=== PATIENT | female | born 1990 | race African-American/Black ===

== ENCOUNTER 2017-06-02 11:44 | Inpatient (IN) | payer OTHER ==
[2017-06-02 11:50] VITALS: BMI 60.2
--- NOTE | 2017-06-02 12:05 | PDOC ---
History of Present Illness - General Chief Complaint: Wound Infection Stated Complaint: SEPSIS Time Seen by Provider: 06/02/17 12:03 History Source: Patient Exam Limitations: No Limitations - History of Present Illness Initial Comments: 06/02/17 12:39 26 yo female with uncontrolled IDDM, chronic non-healing right heel ulcer, prior MRSA (treated with whole-body scrub), and HTN who presents c/o 8/10 foot and leg pain, fever, abdominal pain, and vomiting. Her symptoms started two days ago with increased pain, swelling, and redness around the nonhealing right foot ulcer spreading up the right calf for which she took Tylenol yesterday with no relief. This morning her entire right leg was achy up to the hip, she had an onset of fever and chills, and she had an onset of vomiting and mid- abdominal pain. She has vomited too many times to count today. She did not take her morning dose of insulin d/t the vomiting, and has been measuring her CBG to be >400 at home in the past two days. She has had DKA in the past. She is supposed to be going to wound care appointment weekly but has not been in one month because she moved homes. She additionally notes recent shakiness, but denies chest pain, shortness of breath, diarrhea, constipation, or blood in the vomit or stool. Past History - Past Medical History Allergies/Adverse Reactions: Allergies Allergy/AdvReac Type Severity Reaction Status Date / Time morphine Allergy Verified 06/02/17 11:50 Home Medications: Ambulatory Orders Insulin Glargine,Hum.rec.anlog [Lantus Solostar PEN (NF)] 60 units SQ BID Insulin Lispro [Humalog] 100 unit SQ ASDIR 06/02/17 Diabetes: Yes HTN: Yes Other medical history: OBESITY - Surgical History Cholecystectomy: Yes - Psycho/Social/Smoking Cessation Hx Suicidal Ideation: No Smoking History: Never smoked Information on smoking cessation initiated: No Hx Alcohol Use: No Drug/Substance Use Hx: No Substance Use Type: None Review of Systems - Review of Systems Constitutional: Yes: Chills, Fever, Malaise, Weakness. No: Unexplained wgt Loss HEENTM: No: Nose Congestion, Throat Pain Respiratory: No: Cough, Shortness of Breath Cardiac (ROS): No: Chest Pain, Palpitations ABD/GI: Yes: Nausea, Vomiting, Other (abdominal pain). No: Constipated, Diarrhea, Rectal Bleeding : No: Burning, Dysuria Musculoskeletal: No: Back Pain, Neck Pain Integumentary: Yes: Erythema (right foot/ankle/lower leg), Other (right heel ulcer). No: Bruising Neurological: Yes: Tremors. No: Headache, Numbness, Tingling, Weakness, Dizziness Endocrine: No: Unexplained Weight Gain, Unexplained Weight Loss *Physical Exam - Vital Signs Last Vital Signs Temp Pulse Resp BP Pulse Ox 101.2 F H 115 H 19 130/71 97 06/02/17 11:48 06/02/17 11:48 06/02/17 11:48 06/02/17 11:48 06/02/17 11:48 - Physical Exam General Appearance: Yes: Appropriately Dressed, Moderate Distress, Obese, Other (fully alert and oriented, appears uncomfortable, seen walking to exam room in right foot/ankle splint boot, moaning in pain while walking, actively vomiting in exam room during interview and physical exam, unwell-appearing) HEENT: positive: EOMI, Normal Voice, Hearing Grossly Normal. negative: Scleral Icterus (R), Scleral Icterus (L), Nasal Congestion Neck: positive: Trachea midline, Supple. negative: Tender, Rigid Respiratory/Chest: positive: Lungs Clear, Normal Breath Sounds. negative: Respiratory Distress, Crackles, Rhonchi, Stridor, Wheezing Cardiovascular: positive: Regular Rhythm, Regular Rate, Edema (R>L BLE). negative: Murmur Gastrointestinal/Abdominal: positive: Normal Bowel Sounds, Soft, Protuberent. negative: Organomegaly, Pulsatile Mass, Guarding Musculoskeletal: negative: Decreased Range of Motion, Vertebral Tenderness Extremity: positive: Normal Capillary Refill, Normal Inspection, Normal Range of Motion, Swelling (right foot, ankle, and lower leg), Erythema ( circumferential right foot, ankle, and leg to mid-calf), Inflammation (right foot, ankle, and lower leg). negative: Tender, Cyanosis Integumentary: positive: Normal Color, Dry, Warm, Erythema, Other (3x3cm diameter stage III right plantar heel ulcer with yellow drainage seen on dressing but without apparent active or purulent drainage on the actual wound). 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 Meets sepsis criteria in triage, on exam is actively vomiting and with significant pain/swelling/erythema to right foot. Ordered is septic workup, serum acetone, serum preg, vancomycin/zosyn for empiric therapy, xray right foot/ankle/tib/fib. Also ordered is cardiac profile, EKG, CRP. For sxs control ordered is Ofirmev, Dilaudid, Zofran Lab work is notable for WBC 18 with left shift, lactate is 4.0, CRP is 18.7. Also on CMP her glucose is 505 and on UA she does have glucosuria and serum acetone is trace +, but anion gap is 13. X-rays of foot, ankle, tib/fib do not show e/o gas or bony involvement. Spoke with radiology, who has concern for widening between the first and second metatarsal. Concern is that this is an early sign of Charcot arthropathy. Pt's BG is still high after 10 U regular insulin SQ. Ordered a second 10 U regular insulin as Pt's potassium was >4 on CMP. Pt is admitted for further management. *DC/Admit/Observation/Transfer Diagnosis at time of Disposition: Sepsis Qualifiers: Sepsis type: sepsis due to unspecified organism Qualified Code(s): A41.9 - Sepsis, unspecified organism Foot ulcer, right Qualifiers: Non-pressure ulcer stage: unspecified non-pressure ulcer stage Qualified Code(s ): L97.519 - Non-pressure chronic ulcer of other part of right foot with unspecified severity Diabetes Qualifiers: Diabetes mellitus type: other specified (including BIJAN) Diabetes mellitus complication status: with hyperglycemia Diabetes mellitus chcf insulin use : with terminal worker use Qualified Code(s): E13.65 - Other specified diabetes mellitus with hyperglycemia Vomiting Qualifiers: Vomiting type: unspecified Vomiting Intractability: non-intractable Nausea presence: with nausea Qualified Code(s): R11.2 - Nausea with vomiting, unspecified - Discharge Dispostion Condition at time of disposition: Guarded Admit: Yes
[2017-06-02] MEDS ORDERED: SODIUM CHLORIDE 0.9% 1000 ML INFUS.BAG IV PRN (12:16)
[2017-06-02] MEDS ORDERED: ACETAMINOPHEN 1000 MG/100 ML VIAL (NON FORMULARY) IVPB ONE (12:30)
[2017-06-02] MEDS ORDERED: HYDROmorphone HCL CARPU-JECT 1 MG/1 ML DISP.SYRIN IVPUSH ONE (12:30)
[2017-06-02] MEDS ORDERED: ONDANSETRON 4 MG/2 ML VIAL IVPUSH ONE ×3 (12:33→14:29)
[2017-06-02] MEDS ORDERED: PIPERACILLIN/TAZOB 3.375 GM 3.375 GM in DEXTROSE 5%-WATER - 50 ML IVPB ONE (12:36)
[2017-06-02] MEDS ORDERED: VANCOMYCIN 1 GRAM (PRE-DOCKED) 1,000 MG/250 ML BAG IVPB ONE (12:36)
[2017-06-02] MEDS ORDERED: ACETAMINOPHEN INJECTION 100 ML IVPB ONE (12:47)
[2017-06-02] MEDS ORDERED: ONDANSETRON 4 MG/2 ML VIAL ONE ×2 (12:47→15:04)
[2017-06-02] MEDS ORDERED: VANCOMYCIN 1 GRAM (PRE-DOCKED) 250 ML IVPB ONE ×2 (12:47→12:48)
[2017-06-02] MEDS ORDERED: HYDROmorphone HCL CARPU-JECT 1 MG/1 ML DISP.SYRIN ONE ×2 (12:47→16:05)
[2017-06-02] MEDS ORDERED: PIPERACILLIN/TAZOB 3.375 GM 50 ML IVPB ONE (12:48)
[2017-06-02 12:57] LABS: BASOPHIL 0.9 % (0-2.0); MCH 25.6 pg (25.7-33.7); MCHC 32.3 g/dl (32.0-36.0); MEAN CELL VOLUME 79.4 fl (80-96); MEAN PLT VOLUME 9.4 fl (7.5-11.1); NEUTROPHILS 89.4 % (42.8-82.8); PLATELET COUNT 286 K/MM3 (134-434); RDW 14.7 % (11.6-15.6)
[2017-06-02 13:02] LABS: VENOUS BLOOD GAS HCO3 24.5 meq/L (19-25); VENOUS PH 7.38 (7.32-7.42)
[2017-06-02 13:09] LABS: INR 1.2 (0.82-1.09); PROTHROMBIN TIME (PATIENT) 13.3 SEC (9.98-11.88)
--- NOTE | 2017-06-02 13:09 | PDOC ---
Attending Attestation - Resident Resident Name: Princess Rios - ED Attending Attestation I have performed the following: I have examined & evaluated the patient, The case was reviewed & discussed with the resident, I agree w/resident's findings & plan, Exceptions are as noted - HPI HPI: 26 yo F history poorly controlled DM, chronic R heel ulcer, HTN presents with severe R foot and leg pain, fever, abdominal pain, vomiting. She noted increasing pain for the past 2 days, now having swelling and increasing redness. She has been taking tylenol with no relief. She has missed recent insulin doses. She has not had recent wound care, as she recently moved and has not established care here. - Physicial Exam PE: GENERAL: Awake, alert, and fully oriented, appears in obvious discomfort. Obese. HEAD: No signs of trauma EYES: PERRLA, EOMI, sclera anicteric, conjunctiva clear ENT: Auricles normal inspection, hearing grossly normal, nares patent, oropharynx clear without exudates. Dry mucosa NECK: Normal ROM, supple, no lymphadenopathy, JVD, or masses LUNGS: Breath sounds equal, clear to auscultation bilaterally. No wheezes, and no crackles HEART: Regular rate and rhythm, normal S1 and S2, no murmurs, rubs or gallops ABDOMEN: Soft, nontender, normoactive bowel sounds. No guarding, no rebound. No masses EXTREMITIES: R heel ulcer, no active drainage, with erythema to the lower leg and foot, and swelling of the foot. Remainder of extremities with normal range of motion, no edema. No clubbing or cyanosis. No cords, erythema, or tenderness NEUROLOGICAL: Cranial nerves II through XII grossly intact. Normal speech. Motor and sensation intact. SKIN: Warm, Dry, normal turgor, no rashes. - Medical Decision Making Patient with poorly controlled DM, chronic heel ulcer with acute infection. Will treat with broad spectrum abx, pain medication, IVF and insulin.
[2017-06-02 13:12] LABS: ACTIVATED PTT 29.9 SECONDS (26.9-34.4)
[2017-06-02 13:16] LABS: C-REACTIVE PROTEIN 18.7 MG/DL (0.00-0.3)
[2017-06-02 13:17] LABS: ANION GAP 13 (8-16); BILIRUBIN,TOTAL 0.6 mg/dL (0.2-1.0); CALCIUM 8.9 mg/dL (8.5-10.1); CO2 24 mmol/L (21-32); CREATININE 1.3 mg/dL (0.55-1.02); SGOT/AST 19 U/L (15-37); SGPT/ALT 32 U/L (12-78); TOT PROT 8.6 g/dl (6.4-8.2)
[2017-06-02 13:20] LABS: ALK PHOS 137 U/L (45-117); CPK 24 IU/L (26-192); TROPONIN I < 0.02 ng/ml (0.00-0.05)
[2017-06-02 13:34] LABS: GLUCOSE,RANDOM 505 mg/dL (74-106)
[2017-06-02] MEDS ORDERED: INSULIN REGULAR HUMAN 100 UNITS/ML *VIAL SQ ONE ×2 (13:50→17:28)
[2017-06-02 13:53] LABS: ACETONE SERUM TRACE (NEGATIVE)
[2017-06-02] MEDS ORDERED: INSULIN REGULAR HUMAN 100 UNITS/ML *VIAL ONE (14:02)
[2017-06-02] MEDS ORDERED: HYDROmorphone HCL CARPU-JECT 1 MG/1 ML DISP.SYRIN IVPB ONE (15:44)
[2017-06-02] MEDS ORDERED: IBUPROFEN 400 MG TABLET (FP) PO ONE ×2 (16:09→16:12)
[2017-06-02] MEDS ORDERED: ALBUTEROL SO4 0.083% IH SOL 2.5 MG/3 ML VIAL.NEB. NEB PRN (16:15)
[2017-06-02] MEDS: SODIUM CHLORIDE 1,000 ML IV SCH (16:43)
[2017-06-02 17:48] LABS: URINE APPEARANCE SLCLOUDY; URINE BILIRUBIN NEGATIVE (NEGATIVE); URINE BLOOD 1+ (NEGATIVE); URINE COLOR YELLOW; URINE GLUCOSE (UA) 3+ (NEGATIVE); URINE KETONE NEGATIVE (NEGATIVE); URINE LEUK ESTERASE TRACE (NEGATIVE); URINE NITRITE NEGATIVE (NEGATIVE); URINE UROBILINOGEN NEGATIVE mg/dL (0.2-1.0)
[2017-06-02] MEDS: INSULIN SLIDING SCALE (NOVOLOG) 1 VIAL SQ SCH (17:52)
--- NOTE | 2017-06-02 18:03 | PN ---
Teaching Attending Note Name of Resident: Emmanuel Frazier ATTENDING PHYSICIAN STATEMENT I saw and evaluated the patient. I reviewed the resident's note and discussed the case with the resident. I agree with the resident's findings and plan as documented. SUBJECTIVE: This is a 26 year old woman with a history of uncontrolled DM, HTN, diabetic foot ulcer, MRSA who comes to the ER complaining of right foot pain, right lower leg redness, fever, chill, nausea, vomiting. She had been following at a wound clinic, but since she recently moved to the area, she has not received any care x 1 month. OBJECTIVE: Vital Signs Period Temp Pulse Resp BP Sys/Wynn Pulse Ox Last 24 Hr 101.2 F-103.5 F 105-116 19-22 95-130/45-71 97-99 HEART: S1S2, tachycardic LUNGS: Clear ABDOMEN: Obese, soft, non-tender, non-distended, normal BS EXTREMITIES: No edema, ulcer of right heel with no purulent drainage. There is surrounding erythema and tenderness which extend up lower right leg ASSESSMENT AND PLAN: This is a 26 year old woman with a history of uncontrolled DM, HTN, diabetic foot ulcer, MRSA who presented to the ER with pain in right foot and erythema of right lower leg associated with fever, chills, nausea, vomiting. 1. Severe sepsis (Temp 103.5, HR 105, lactic acid 4.0, creatinine 1.3) secondary to cellulitis of right leg - Has history of MRSA - Zosyn, Vancomycon given in ER - will continue - ID consult 2. Non-healing diabetic ulcer of right heel - No evidence of osteomyelitis on x-rays - Podiatry consult - MRI to evaluate for osteomyelitis 3. Insulin-dependent diabetes mellitus, uncontrolled - Continue Lantus - Fingersticks with Novolog sliding scale - Check HgbA1c - Nutrition consult 4. Morbid obesity with BMI 60
[2017-06-02 18:26] LABS: URINE PROTEIN 2+ (NEGATIVE)
[2017-06-02 18:30] LABS: URINE RBC 6 /hpf (0-3); URINE WBC 12 /hpf (3-5)
[2017-06-02] MEDS ORDERED: INSULIN (NOVOLOG) ASPART 100 UNITS/ML 10ML VIAL ONE (20:47)
[2017-06-02] MEDS: ONDANSETRON 4 MG/2 ML VIAL IVPB PRN (20:52)
[2017-06-02] MEDS ORDERED: INSULIN (NOVOLOG) ASPART 100 UNITS/ML 10ML VIAL SQ ONE (21:00)
[2017-06-02] MEDS: HEPARIN NA (PORCINE) 5,000 UNITS/ML 1ML VIAL SQ SCH (21:07)
[2017-06-02] MEDS: ACETAMINOPHEN 325 MG TABLET (FP) PO PRN (21:34)
[2017-06-02] MEDS: HYDROmorphone HCL CARPU-JECT 1 MG/1 ML DISP.SYRIN IVPUSH PRN (21:36)
[2017-06-03] MEDS: SODIUM CHLORIDE 1,000 ML IV SCH ×2 (02:05→16:15)
[2017-06-03] MEDS: HYDROmorphone HCL CARPU-JECT 1 MG/1 ML DISP.SYRIN IVPUSH PRN ×4 (06:02→22:04)
[2017-06-03] MEDS: ONDANSETRON 4 MG/2 ML VIAL IVPB PRN ×2 (06:03→13:52)
[2017-06-03] MEDS: ACETAMINOPHEN 325 MG TABLET (FP) PO PRN ×2 (06:03→16:12)
[2017-06-03] MEDS: INSULIN SLIDING SCALE (NOVOLOG) 1 VIAL SQ SCH ×5 (06:06→21:22)
--- NOTE | 2017-06-03 07:04 | HP ---
CHIEF COMPLAINT: Fever PCP: Dr. Herndon HISTORY OF PRESENT ILLNESS: The patient is a 26 yo female with a PMH of DM, Asthma, HTN, Chronis foot ulcer to 2 months comes into the ED complaining of Fever and chills as well as pain and swelling in her right foot for the past day. These symptoms have been associated with both nausea and no bilious, nonbloody vomiting. She vomited 2 times in the ED. She has been following at a wound care clinic for the ulcer, but has not been to one in a month as she just moved into the area. Patient denies chest pain, shortness of breath. ER course was notable for: (1) white count 18, lactic acid 3.5 (2) temperature 103.5 (3) received one dose vanc and zosyn Recent Travel: none PAST MEDICAL HISTORY: see above PAST SURGICAL HISTORY: cholecystectomy Social History: Smoking: none Alcohol: socially Drugs: none Family History: Diabetes, Hypertension and Asthma among almost all of her family members Allergies morphine Allergy (Verified 06/02/17 11:50) HOME MEDICATIONS: Home Medications Medication Instructions Recorded Insulin Glargine,Hum.rec.anlog 60 units SQ BID 06/02/17 [Lantus Solostar PEN (NF)] Insulin Lispro [Humalog] 100 unit SQ ASDIR 06/02/17 REVIEW OF SYSTEMS -See HPI for positives CONSTITUTIONAL: Absent: diaphoresis, generalized weakness, malaise, loss of appetite, weight change HEENT: Absent: rhinorrhea, nasal congestion, throat pain, throat swelling, difficulty swallowing, mouth swelling, ear pain, eye pain, visual changes CARDIOVASCULAR: Absent: chest pain, syncope, palpitations, irregular heart rate, lightheadedness , peripheral edema RESPIRATORY: Absent: cough, shortness of breath, dyspnea with exertion, orthopnea, wheezing, stridor, hemoptysis GASTROINTESTINAL: Absent: abdominal pain, abdominal distension, diarrhea, constipation, melena, hematochezia GENITOURINARY: Absent: dysuria, frequency, urgency, hesitancy, hematuria, flank pain, genital pain MUSCULOSKELETAL: Absent: myalgia, arthralgia, joint swelling, back pain, neck pain SKIN: Absent: rash, itching, pallor HEMATOLOGIC/IMMUNOLOGIC: Absent: easy bleeding, easy bruising, lymphadenopathy, frequent infections ENDOCRINE: Absent: unexplained weight gain, unexplained weight loss, heat intolerance, cold intolerance NEUROLOGIC: Absent: headache, focal weakness or paresthesias, dizziness, unsteady gait, seizure, mental status changes, bladder or bowel incontinence PSYCHIATRIC: Absent: anxiety, depression, suicidal or homicidal ideation, hallucinations. PHYSICAL EXAMINATION Vital Signs - 24 hr 06/02/17 06/02/17 06/02/17 16:10 18:30 18:33 Temperature 102.9 F H 102.7 F H 102.7 F H Pulse Rate 102 H 102 H Pulse Rate [ 116 H Radial] Respiratory 22 20 20 Rate Blood Pressure 104/66 104/66 Blood Pressure 100/59 [Left Arm] O2 Sat by Pulse 99 Oximetry (%) 06/02/17 06/03/17 06/03/17 23:00 01:00 03:00 Temperature 102 F H 98.9 F 99.8 F H Pulse Rate 91 H Pulse Rate [ Radial] Respiratory 16 Rate Blood Pressure 127/71 Blood Pressure [Left Arm] O2 Sat by Pulse 96 Oximetry (%) GENERAL: Awake, alert, and fully oriented, in no acute distress. HEAD: Normal with no signs of trauma. EYES: Pupils equal, round and reactive to light, extraocular movements intact, sclera anicteric, conjunctiva clear. No lid lag. NECK: Normal range of motion, supple without lymphadenopathy, JVD, or masses. LUNGS: Breath sounds equal, clear to auscultation bilaterally. No wheezes, and no crackles. No accessory muscle use. HEART: Regular rate and rhythm, normal S1 and S2 without murmur, rub or gallop. ABDOMEN: Soft, nontender, not distended, normoactive bowel sounds, no guarding, no rebound, no masses. MUSCULOSKELETAL: Normal range of motion at all joints. No bony deformities or tenderness. No CVA tenderness. UPPER EXTREMITIES: 2+ pulses, warm, well-perfused. No cyanosis. No clubbing. No peripheral edema. LOWER EXTREMITIES: 2+ pulses, warm, well-perfused. No calf tenderness. No peripheral edema. NEUROLOGICAL: Cranial nerves II-XII intact. Normal speech. Normal gait. PSYCHIATRIC: Cooperative. Good eye contact. Appropriate mood and affect. SKIN: Warm, dry, normal turgor, no rashes or lesions noted, normal capillary refill. Laboratory Results - last 24 hr 06/02/17 06/02/17 06/02/17 15:16 16:45 20:20 POC Glucometer Random Glucose Lactic Acid 3.5 H* 2.7 H* Urine Color Yellow Urine Appearance Slcloudy Urine pH 5.0 Urine Protein 2+ H Urine Glucose (UA) 3+ H Urine Ketones Negative Urine Blood 1+ H Urine Nitrite Negative Urine Bilirubin Negative Urine Urobilinogen Negative Ur Leukocyte Esterase Trace Urine RBC 6 Urine WBC 12 Ur Epithelial Cells Few 06/02/17 06/02/17 06/02/17 20:30 21:20 23:46 POC Glucometer 429 334 Random Glucose 466 H* Lactic Acid Urine Color Urine Appearance Urine pH Urine Protein Urine Glucose (UA) Urine Ketones Urine Blood Urine Nitrite Urine Bilirubin Urine Urobilinogen Ur Leukocyte Esterase Urine RBC Urine WBC Ur Epithelial Cells 06/03/17 06/03/17 06/03/17 00:01 03:19 06:06 POC Glucometer 258 263 Random Glucose Lactic Acid 2.3 H* Urine Color Urine Appearance Urine pH Urine Protein Urine Glucose (UA) Urine Ketones Urine Blood Urine Nitrite Urine Bilirubin Urine Urobilinogen Ur Leukocyte Esterase Urine RBC Urine WBC Ur Epithelial Cells ASSESSMENT/PLAN: 26 yo f w/ PMH DM, Asthma, HTN, Chronic foot ulcer presents to the ED c/o fevers , chills as well as redness, pain and swelling of the right foot for one day. Patient admitted for sepsis 2/2 infected diabetic foot ulcer. #sepsis 2/2 right lower leg cellulitis 2/2 diabetic foot ulcer -Patient received zosyn 3.375 and vancomycin 1 gm in ED -ID consult -Tylenol PRN fever -Repeat lactic acid at 1900; if downtrending, repeat in AM -NS @ 100 -BCx, Urine Cx, U/A sent. F/u results -repeat CBC/CMP in AM -get ESR -Podiatry consult #uncontrolled DM -ISS -Diabetic diet #Asthma -PRN Nebs #HTN- BP controlled at this time -will resume patient's home enalapril 10mg daily if needed. FEN -NS@100 - will monitor -Diabetic diet Prophylaxsis -Hep SQ 5Ku BID Dispo: -patient admitted for sugar control and treatment with IV antibiotics Problem List - Problem (1) Diabetes Code(s): E11.9 - TYPE 2 DIABETES MELLITUS WITHOUT COMPLICATIONS Qualifiers: Diabetes mellitus type: other specified (including BIJAN) Diabetes mellitus complication status: with hyperglycemia Diabetes mellitus rat exterminator insulin use: with alf use Qualified Code(s): E13.65 - Other specified diabetes mellitus with hyperglycemia; Z79.4 - care home (current) use of insulin (2) Foot ulcer, right Code(s): L97.519 - NON-PRS CHRONIC ULCER OTH PRT RIGHT FOOT W UNSP SEVERITY Qualifiers: Non-pressure ulcer stage: unspecified non-pressure ulcer stage Qualified Code(s): L97.519 - Non-pressure chronic ulcer of other part of right foot with unspecified severity (3) Sepsis Code(s): A41.9 - SEPSIS, UNSPECIFIED ORGANISM Qualifiers: Sepsis type: sepsis due to unspecified organism Qualified Code(s): A41.9 - Sepsis, unspecified organism (4) Vomiting Code(s): R11.10 - VOMITING, UNSPECIFIED Qualifiers: Vomiting type: unspecified Vomiting Intractability: non-intractable Nausea presence: with nausea Qualified Code(s): R11.2 - Nausea with vomiting, unspecified Visit type - Emergency Visit Emergency Visit: Yes ED Registration Date: 06/02/17 Care time: The patient presented to the Emergency Department on the above date and was hospitalized for further evaluation of their emergent condition. - New Patient This patient is new to me today: Yes Date on this admission: 06/03/17 - Critical Care Critical Care patient: No
[2017-06-03 07:33] LABS: BASOPHIL 0.4 % (0-2.0); MCH 25.5 pg (25.7-33.7); MCHC 32.1 g/dl (32.0-36.0); MEAN CELL VOLUME 79.3 fl (80-96); MEAN PLT VOLUME 9.3 fl (7.5-11.1); NEUTROPHILS 87.5 % (42.8-82.8); PLATELET COUNT 197 K/MM3 (134-434); WHITE BLOOD COUNT 11.3 K/mm3 (4.0-10.0)
[2017-06-03 07:55] LABS: CALCIUM 8.2 mg/dL (8.5-10.1)
[2017-06-03 08:03] LABS: ALBUMIN 2.2 g/dl (3.4-5.0); ALK PHOS 93 U/L (45-117); ANION GAP 8 (8-16); BILIRUBIN,TOTAL 0.6 mg/dL (0.2-1.0); CO2 25 mmol/L (21-32); CREATININE 0.9 mg/dL (0.55-1.02); GLUCOSE,RANDOM 259 mg/dL (74-106); MAGNESIUM 1.8 mg/dL (1.8-2.4); PHOSPHOROUS 2.3 mg/dL (2.5-4.9); SGOT/AST 10 U/L (15-37); SGPT/ALT 22 U/L (12-78); TOT PROT 6.7 g/dl (6.4-8.2)
--- NOTE | 2017-06-03 08:16 | CONSULT ---
Consult - text type - Consultation Consultation Note: Podiatry Consultation: Pleasant 26 year old IDDM F presents for admission for uncontrolled hyperglycemia and chronic ulcer R heel for several months. Patient has been living in [place] and has been followed [facility]. Patient states that she had an MRI for the heel a couple months ago, negative for osteomyelitis. She states that the wound actually has improved. Her blood sugars have been poorly controlled for quite some time. She reports fever/chills at home for the past several days. Currently febrile. PMHx: Type 1 IDDM, asthma, HTN Meds: noted in chart ALL: morphine CANDE: R foot: pedal pulses 1/4, TG warm, CFT brisk to all toes. There is an inferior heel DM ulcer with mixed fibrogranular base, mostly granular wound base, central aspect of wound probes deep, mild periwound erythema, no ascending cellulitis, no purulent drainage, no fluctuance, no soft tissue crepitus, no signs of active infection. Minimal tenderness to palpation. Blood Cx: pending Wound Cx: pending WBC: 11.3 R foot XR: no soft tissue crepitus, no radiographic evidence of osteomyelitis Imp: 26 year old IDDM F with R heel ulcer 1. Excisional debridement at bedside, using #15 blade scalpel, no pus noted. 2. Rx santyl daily to R heel 3. Recommend MRI R foot to evaluate for osteomyelitis. Likely need IV abx treatment. 4. ID consultation. 5. Heel offloading 6. No acute infection in the foot right foot 7. Will follow. Thanks for the consult. Iesha Roberts DPM
[2017-06-03] MEDS ORDERED: WATER IVPB ONE (09:48)
[2017-06-03] MEDS ORDERED: DEXTROSE 5% IVPB ONE (09:48)
[2017-06-03] MEDS ORDERED: VANCOMYCIN IVPB ONE (09:48)
[2017-06-03] MEDS: HEPARIN NA (PORCINE) 5,000 UNITS/ML 1ML VIAL SQ SCH ×2 (09:50→21:22)
[2017-06-03] MEDS ORDERED: DEXTROSE 5%-WATER 100 ML IVPB ONE ×2 (09:59→17:32)
[2017-06-03] MEDS ORDERED: PIPERACILLIN/TAZOBACTAM 4.5 GM VIAL IVPB ONE ×2 (09:59→17:32)
[2017-06-03] MEDS ORDERED: VANCOMYCIN 1,500 MG in SODIUM CHLORIDE 500 ML IVPB SCH (10:00)
[2017-06-03] MEDS ORDERED: PIPERACILLIN/TAZOB 4.5 GM/100 ML PRE-DOCKED IVPB SCH (10:00)
[2017-06-03] MEDS ORDERED: VANCOMYCIN 2,000 MG in DEXTROSE 5%-WATER - 500 ML IVPB ONE (10:00)
--- NOTE | 2017-06-03 10:02 | PN ---
Teaching Attending Note Name of Resident: Logan Suh ATTENDING PHYSICIAN STATEMENT I saw and evaluated the patient. I reviewed the resident's note and discussed the case with the resident. I agree with the resident's findings and plan as documented. SUBJECTIVE: 26 year old female with PMH of IDDM since childhood admitted with pain and swelling of the RLE for last 2 days. she developed an ulcer at the heel of the foot 3 months ago and was hospitalized for this in [facility]- while in the hospital MRI was done and negative she reports MRSA negative, and she had vomiting and abdominal pain that resulted in lap choly she was discharged on a week of po antibiotics and has been off antibiotics since then. she was having f/u in wound care until a month ago and wound was improving, she has been continueing local care and keeping ulcer dry and covered now with 2 days of pain, swelling and hot flashes vomiting began after admission now with midepigastric abdominal pain as well seen in ED with fever of 103- given vanco/zosyn, xray negative this am with fever to 102 vomiting continues with foot pain OBJECTIVE: Vital Signs Period Temp Pulse Resp BP Sys/Wynn Pulse Ox Last 24 Hr 98.9 F-103.5 F 91-116 16-22 95-130/45-71 96-99 obese young lady in moderate distress from foot pain cor-rrr lungs clear abd soft, +midepigastric pain on palpation, some RUQ disomfort, large right inguinal lymph node ext +erythema RLE, +swelling right foot on dorsum, heel ulcer is clean no crepitance CBC, BMP 06/03/17 06:15 06/03/17 06:15 cultures pending Laboratory Tests 06/02/17 06/03/17 12:39 06:15 ESR 98 H C-Reactive Protein 18.7 H ASSESSMENT AND PLAN: severe soft tissue infection of the RLE heel ulcer-r/o osteomyelitis diabetes morbid obesity vanco/zosyn adjusted for weight duplex leg r/o dvt amylase/lipase abdominal sonogram MRI of foot Problem List - Problems (1) Sepsis Code(s): A41.9 - SEPSIS, UNSPECIFIED ORGANISM Qualifiers: Sepsis type: sepsis due to unspecified organism Qualified Code(s): A41.9 - Sepsis, unspecified organism (2) Soft tissue infection Code(s): L08.9 - LOCAL INFECTION OF THE SKIN AND SUBCUTANEOUS TISSUE, UNSP (3) Osteomyelitis Code(s): M86.9 - OSTEOMYELITIS, UNSPECIFIED (4) Diabetes Code(s): E11.9 - TYPE 2 DIABETES MELLITUS WITHOUT COMPLICATIONS Qualifiers: Diabetes mellitus type: other specified (including BIJAN) Diabetes mellitus complication status: with hyperglycemia Diabetes mellitus exterminator helper insulin use: with fdc use Qualified Code(s): E13.65 - Other specified diabetes mellitus with hyperglycemia; Z79.4 - buttermaker continuous churn (current) use of insulin (5) Obesities, morbid Code(s): E66.01 - MORBID (SEVERE) OBESITY DUE TO EXCESS CALORIES (6) Foot ulcer, right Code(s): L97.519 - NON-PRS CHRONIC ULCER OTH PRT RIGHT FOOT W UNSP SEVERITY Qualifiers: Non-pressure ulcer stage: unspecified non-pressure ulcer stage Qualified Code(s): L97.519 - Non-pressure chronic ulcer of other part of right foot with unspecified severity
[2017-06-03] MEDS: PIPERACILLIN/TAZOB 4.5 GM 4.5 GM in DEXTROSE 5%-WATER 100 ML IVPB SCH ×2 (10:07→17:34)
[2017-06-03] MEDS: COLLAGENASE CLOSTRIDIUM HIST. 30 GRAMS TUBE TP SCH (10:09)
--- NOTE | 2017-06-03 10:13 | CONSULT ---
Consult Consult Specialty:: Infectious Diseases Reason for Consultation:: R heel ulcer - History of Present Illness History of Present Illness: 26 year old female with a pmh of IDDM, chronic non-healing R heal ulcer, and hypertension presented to the ED w/ pain in her right foot, R leg swelling, erythema fevers, and nausea for 2 days duration. She states that this ulcer began 3 months ago, and she was hospitalized and given antibiotics. She reports that her prior admission for the ulcer (found not to be MRSA infected) was complicated by abdominal pain and a subsequent cholecystectomy. 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 Lives with her cousin and a pet cat. Denies smoking, drinking, or illicit drug use. Denies ever having HIV test, but would like one. In the ED she began to have abdominal pain and multiple episodes of vomiting. ID consulted for evaluation of R leg cellulitis 2 /2 R heel ulcer. - History Source History Provided By: Patient Limitations to Obtaining History: No Limitations - Past Medical History Cardio/Vascular: Yes: HTN ...: No Endocrine: Yes: Diabetes Mellitus (Type 1) - Alcohol/Substance Use Hx Alcohol Use: No - Smoking History Smoking history: Never smoked Home Medications - Allergies Allergies/Adverse Reactions: Allergies Allergy/AdvReac Type Severity Reaction Status Date / Time morphine Allergy Verified 06/02/17 11:50 - Home Medications Home Medications: Ambulatory Orders Insulin Glargine,Hum.rec.anlog [Lantus Solostar PEN (NF)] 60 units SQ BID Insulin Lispro [Humalog] 100 unit SQ ASDIR 06/02/17 Review of Systems - Review of Systems Constitutional: reports: Chills, Fever Eyes: reports: No Symptoms HENT: reports: No Symptoms Neck: reports: No Symptoms Cardiovascular: reports: No Symptoms Respiratory: reports: No Symptoms Gastrointestinal: reports: Abdominal Pain Genitourinary: reports: No Symptoms Musculoskeletal: reports: Extremity Pain (R leg pain) Integumentary: reports: Lesions Neurological: reports: No Symptoms Endocrine: reports: No Symptoms Hematology/Lymphatic: reports: No Symptoms Psychiatric: reports: No Symptoms Pain Intensity: 8 Physical Exam Vital Signs: Vital Signs Temperature 102.7 F H 09/01/17 07:00 Pulse Rate 95 H 06/03/17 07:00 Respiratory Rate 18 06/03/17 07:00 Blood Pressure 106/64 06/03/17 07:00 O2 Sat by Pulse Oximetry (%) 96 06/02/17 23:00 Constitutional: Yes: Well Nourished, Calm, Mild Distress Eyes: Yes: Conjunctiva Clear, EOM Intact HENT: Yes: Atraumatic, Normocephalic Neck: Yes: Supple, Trachea Midline Cardiovascular: Yes: Regular Rate and Rhythm, S1, S2. No: Gallop, Murmur, Rub Respiratory: Yes: Regular, CTA Bilaterally. No: Rales, Rhonchi, Tachypnea, Wheezes Gastrointestinal: Yes: Normal Bowel Sounds, Soft, Abdomen, Obese, Tenderness ( Periumbilical and R sided abdominal pain), Tenderness, Epigastrium Musculoskeletal: Yes: WNL Extremities: Yes: Other (R heel ulcer noted measuring around 2.5x2.5cm) Edema: No Peripheral Pulses WNL: Yes Integumentary: Yes: Erythema (Erythema noted along lower R leg) Wound/Incision: Yes: Clean/Dry, Dressing Dry and Intact Neurological: Yes: Alert, Oriented, Cran Nerves II-XII Intact ...Motor Strength: WNL Psychiatric: Yes: WNL Labs: CBC, BMP 06/03/17 06:15 06/03/17 06:15 Imaging - Results Chest X-ray: Report Reviewed X-ray: Report Reviewed Problem List - Problems (1) Foot ulcer, right Code(s): L97.519 - NON-PRS CHRONIC ULCER OTH PRT RIGHT FOOT W UNSP SEVERITY Qualifiers: Non-pressure ulcer stage: unspecified non-pressure ulcer stage Qualified Code(s): L97.519 - Non-pressure chronic ulcer of other part of right foot with unspecified severity (2) Sepsis Code(s): A41.9 - SEPSIS, UNSPECIFIED ORGANISM Qualifiers: Sepsis type: sepsis due to unspecified organism Qualified Code(s): A41.9 - Sepsis, unspecified organism (3) Vomiting Code(s): R11.10 - VOMITING, UNSPECIFIED Qualifiers: Vomiting type: unspecified Vomiting Intractability: non-intractable Nausea presence: with nausea Qualified Code(s): R11.2 - Nausea with vomiting, unspecified Assessment/Plan 26 year old female pmh IDDM, HTN, chronic R heel ulcer seen by ID for cellulitis of R leg 2/2 chronic R heel ulcer and vomiting + abdominal pain 1. R leg ulcer + cellulitis + r/o DVT -LA improved from 2.3-->1.2 -vancomycin 2gm ONCE followed by vancomycin 1.5gm BID 7 days -zosyn 4.5gm Q8h -routine wound care -duplex US RLE -suggest R foot MRI 2. Nausea/vomiting/abdominal pain unlikely due to glucose levels (<200) -f/u amylase + lipase -US abdomen -continue home meds
[2017-06-03] MEDS ORDERED: INSULIN (NOVOLOG) ASPART 100 UNITS/ML 10ML VIAL ONE (11:18)
[2017-06-03 11:36] LABS: AMYLASE 24 U/L (25-115)
--- NOTE | 2017-06-03 15:37 | PN ---
Physical Exam: SUBJECTIVE: Patient seen and examined at bedside. Patient had one vomiting episode overnight. Patient still complains of pain in her leg. OBJECTIVE: Vital Signs Period Temp Pulse Resp BP Sys/Wynn Pulse Ox Last 24 Hr 98.9 F-102.9 F 91-116 16-22 100-127/59-80 96-99 GENERAL: The patient is awake, alert, and fully oriented, in no acute distress. HEAD: Normal with no signs of trauma. EYES: extraocular movements intact, sclera anicteric, conjunctiva clear. No ptosis. NECK: Trachea midline, full range of motion, supple. LUNGS: Breath sounds equal, clear to auscultation bilaterally, no wheezes, no crackles, no accessory muscle use. HEART: Regular rate and rhythm, S1, S2 without murmur, rub or gallop. ABDOMEN: Soft, nontender, nondistended, normoactive bowel sounds, no guarding, no rebound. EXTREMITIES: 2+ pulses, warm, well-perfused. NEUROLOGICAL: Cranial nerves II through X grossly intact. Normal speech, gait not observed. PSYCH: Normal mood, normal affect. SKIN: Warm, dry, normal turgor, There is erythema and swelling over the entire right foot extending midway up the calf. The affected area is hot and exquisitely tender to palpation. There is a clean-appearing diabetic foot ulcer on the right heel. Laboratory Results - last 24 hr 06/02/17 06/02/17 06/02/17 15:16 16:45 20:20 WBC RBC Hgb Hct MCV MCH MCHC RDW Plt Count MPV Neutrophils % Lymphocytes % Monocytes % Eosinophils % Basophils % ESR Sodium Potassium Chloride Carbon Dioxide Anion Gap BUN Creatinine Creat Clearance w eGFR POC Glucometer Random Glucose Lactic Acid 3.5 H* 2.7 H* Calcium Phosphorus Magnesium Total Bilirubin AST ALT Alkaline Phosphatase Total Protein Albumin Total Amylase Lipase Urine Color Yellow Urine Appearance Slcloudy Urine pH 5.0 Ur Specific [place] 1.015 Urine Protein 2+ H Urine Glucose (UA) 3+ H Urine Ketones Negative Urine Blood 1+ H Urine Nitrite Negative Urine Bilirubin Negative Urine Urobilinogen Negative Ur Leukocyte Esterase Trace Urine RBC 6 Urine WBC 12 Ur Epithelial Cells Few 06/02/17 06/02/17 06/02/17 20:30 21:20 23:46 WBC RBC Hgb Hct MCV MCH MCHC RDW Plt Count MPV Neutrophils % Lymphocytes % Monocytes % Eosinophils % Basophils % ESR Sodium Potassium Chloride Carbon Dioxide Anion Gap BUN Creatinine Creat Clearance w eGFR POC Glucometer 429 334 Random Glucose 466 H* Lactic Acid Calcium Phosphorus Magnesium Total Bilirubin AST ALT Alkaline Phosphatase Total Protein Albumin Total Amylase Lipase Urine Color Urine Appearance Urine pH Ur Specific [place] Urine Protein Urine Glucose (UA) Urine Ketones Urine Blood Urine Nitrite Urine Bilirubin Urine Urobilinogen Ur Leukocyte Esterase Urine RBC Urine WBC Ur Epithelial Cells 06/03/17 06/03/17 06/03/17 00:01 03:19 06:06 WBC RBC Hgb Hct MCV MCH MCHC RDW Plt Count MPV Neutrophils % Lymphocytes % Monocytes % Eosinophils % Basophils % ESR Sodium Potassium Chloride Carbon Dioxide Anion Gap BUN Creatinine Creat Clearance w eGFR POC Glucometer 258 263 Random Glucose Lactic Acid 2.3 H* Calcium Phosphorus Magnesium Total Bilirubin AST ALT Alkaline Phosphatase Total Protein Albumin Total Amylase Lipase Urine Color Urine Appearance Urine pH Ur Specific [place] Urine Protein Urine Glucose (UA) Urine Ketones Urine Blood Urine Nitrite Urine Bilirubin Urine Urobilinogen Ur Leukocyte Esterase Urine RBC Urine WBC Ur Epithelial Cells 06/03/17 06/03/17 06/03/17 06:15 06:15 06:15 WBC 11.3 H D RBC 4.06 Hgb 10.3 L D Hct 32.2 L D MCV 79.3 L MCH 25.5 L MCHC 32.1 RDW 15.0 Plt Count 197 D MPV 9.3 Neutrophils % 87.5 H Lymphocytes % 7.3 L Monocytes % 4.8 Eosinophils % 0.0 Basophils % 0.4 ESR 98 H Sodium 138 Potassium 3.8 Chloride 105 D Carbon Dioxide 25 Anion Gap 8 BUN 13 Creatinine 0.9 D Creat Clearance w eGFR > 60 POC Glucometer Random Glucose 259 H D Lactic Acid Calcium 8.2 L Phosphorus 2.3 L Magnesium 1.8 Total Bilirubin 0.6 AST 10 L D ALT 22 D Alkaline Phosphatase 93 D Total Protein 6.7 D Albumin 2.2 L D Total Amylase 24 L Lipase 44 L Urine Color Urine Appearance Urine pH Ur Specific [place] Urine Protein Urine Glucose (UA) Urine Ketones Urine Blood Urine Nitrite Urine Bilirubin Urine Urobilinogen Ur Leukocyte Esterase Urine RBC Urine WBC Ur Epithelial Cells 06/03/17 06/03/17 06/03/17 06:15 07:50 11:14 WBC RBC Hgb Hct MCV MCH MCHC RDW Plt Count MPV Neutrophils % Lymphocytes % Monocytes % Eosinophils % Basophils % ESR Sodium Potassium Chloride Carbon Dioxide Anion Gap BUN Creatinine Creat Clearance w eGFR POC Glucometer 239 Random Glucose Lactic Acid 1.2 Calcium Phosphorus Magnesium Total Bilirubin AST ALT Alkaline Phosphatase Total Protein Albumin Total Amylase Cancelled Lipase Cancelled Urine Color Urine Appearance Urine pH Ur Specific [place] Urine Protein Urine Glucose (UA) Urine Ketones Urine Blood Urine Nitrite Urine Bilirubin Urine Urobilinogen Ur Leukocyte Esterase Urine RBC Urine WBC Ur Epithelial Cells Active Medications Generic Name Dose Route Start Last Admin Trade Name Freq PRN Reason Stop Dose Admin Acetaminophen 650 mg 06/02/17 16:15 06/03/17 06:03 Tylenol - PO 650 mg Q4H PRN Administration FEVER OR PAIN Albuterol Sulfate 1 amp 06/02/17 16:15 Ventolin 0.083% Nebulizer Soln - NEB Q4H PRN SHORT OF BREATH/WHEEZING Collagenase 1 applic 06/03/17 10:00 06/03/17 10:09 Santyl - TP Not Given DAILY DOREEN Heparin Sodium (Porcine) 5,000 unit 06/02/17 22:00 06/03/17 09:50 Heparin - SQ 5,000 unit BID DOREEN Administration Hydromorphone HCl 2 mg 06/03/17 13:33 06/03/17 15:15 Dilaudid Injection - IVPUSH 2 mg Q4H PRN Administration PAIN Sodium Chloride 1,000 mls @ 100 mls/hr 06/02/17 16:15 06/03/17 02:05 Normal Saline - IV 100 mls/hr ASDIR DOREEN Administration Piperacillin Sod/Tazobactam 100 mls @ 200 mls/hr 06/03/17 10:00 06/03/17 10:07 Sod 4.5 gm/ Dextrose IVPB 200 mls/hr Q8H-IV DOREEN Administration Vancomycin HCl 1,500 mg/ 500 mls @ 200 mls/hr 06/03/17 20:00 Sodium Chloride IVPB Q12H DOREEN Insulin Aspart 1 vial 06/02/17 16:30 06/03/17 11:23 Novolog Vial Sliding Scale - SQ 4 unit ACHS DOREEN Administration Protocol Ondansetron HCl 4 mg 06/02/17 16:15 06/03/17 13:52 Zofran Injection IVPB 4 mg Q6H PRN Administration NAUSEA Sodium Chloride 1,000 ml 06/02/17 12:16 06/02/17 13:03 Normal Saline - IV 1,000 ml Q20M PRN Administration MAP<65mm Hg OR SBP <90 ASSESSMENT/PLAN: 26 yo f w/ PMH DM, Asthma, HTN, Chronic foot ulcer presents to the ED c/o fevers , chills as well as redness, pain and swelling of the right foot for one day. Patient admitted for sepsis 2/2 infected diabetic foot ulcer. #sepsis 2/2 right lower leg cellulitis 2/2 diabetic foot ulcer -Patient received zosyn 3.375 and vancomycin 1 gm in ED -ID: -load with 2g Vanco, then 1.5g vanco daily -4.5g zosyn daily -F/U DUPLEX U/S lower extremity r/o DVT -f/u u/s of abdomen; patient's vomiting unrelated to her sepsis -Tylenol PRN fever -Lactic acid 2.7 -> 2.3 -> 1.2 -NS @ 100 -BCx, Urine Cx, U/A sent. F/u results -f/u ESR -Podiatry performed debridement of foot ulcer; reccomends MRI foot #uncontrolled DM -ISS -Diabetic diet #Asthma -PRN Nebs #HTN- BP controlled at this time -will resume patient's home enalapril 10mg daily if needed. 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 (2) Foot ulcer, right Code(s): L97.519 - NON-PRS CHRONIC ULCER OTH PRT RIGHT FOOT W UNSP SEVERITY Qualifiers: Non-pressure ulcer stage: unspecified non-pressure ulcer stage Qualified Code(s): L97.519 - Non-pressure chronic ulcer of other part of right foot with unspecified severity (3) Sepsis Code(s): A41.9 - SEPSIS, UNSPECIFIED ORGANISM Qualifiers: Sepsis type: sepsis due to unspecified organism Qualified Code(s): A41.9 - Sepsis, unspecified organism (4) Vomiting Code(s): R11.10 - VOMITING, UNSPECIFIED Qualifiers: Vomiting type: unspecified Vomiting Intractability: non-intractable Nausea presence: with nausea Qualified Code(s): R11.2 - Nausea with vomiting, unspecified Visit type - Emergency Visit Emergency Visit: Yes ED Registration Date: 06/02/17 Care time: The patient presented to the Emergency Department on the above date and was hospitalized for further evaluation of their emergent condition. - New Patient This patient is new to me today: No - Critical Care Critical Care patient: No
--- NOTE | 2017-06-03 15:53 | PN ---
Teaching Attending Note Name of Resident: Emmanuel Frazier ATTENDING PHYSICIAN STATEMENT I saw and evaluated the patient. I reviewed the resident's note and discussed the case with the resident. I agree with the resident's findings and plan as documented. SUBJECTIVE: Patient complains of nausea. Pain in her right foot/leg is improving. OBJECTIVE: Vital Signs Period Temp Pulse Resp BP Sys/Wynn Pulse Ox Last 24 Hr 98.9 F-102.9 F 91-116 16-22 100-127/59-80 96-99 HEART: S1S2, tachycardic LUNGS: Clear ABDOMEN: Obese, soft, non-tender, non-distended, normal BS EXTREMITIES: No edema, ulcer of right heel with no purulent drainage. Decreased erythema of lower right leg Current Medications Generic Name Dose Route Start Last Admin Trade Name Freq PRN Reason Stop Dose Admin Acetaminophen 650 mg 06/02/17 16:15 06/03/17 06:03 Tylenol - PO 650 mg Q4H PRN Administration FEVER OR PAIN Albuterol Sulfate 1 amp 06/02/17 16:15 Ventolin 0.083% Nebulizer Soln - NEB Q4H PRN SHORT OF BREATH/WHEEZING Collagenase 1 applic 06/03/17 10:00 06/03/17 10:09 Santyl - TP Not Given DAILY DOREEN Heparin Sodium (Porcine) 5,000 unit 06/02/17 22:00 06/03/17 09:50 Heparin - SQ 5,000 unit BID DOREEN Administration Hydromorphone HCl 2 mg 06/03/17 13:33 06/03/17 15:15 Dilaudid Injection - IVPUSH 2 mg Q4H PRN Administration PAIN Sodium Chloride 1,000 mls @ 100 mls/hr 06/02/17 16:15 06/03/17 02:05 Normal Saline - IV 100 mls/hr ASDIR DOREEN Administration Piperacillin Sod/Tazobactam 100 mls @ 200 mls/hr 06/03/17 10:00 06/03/17 10:07 Sod 4.5 gm/ Dextrose IVPB 200 mls/hr Q8H-IV DOREEN Administration Vancomycin HCl 1,500 mg/ 500 mls @ 200 mls/hr 06/03/17 20:00 Sodium Chloride IVPB Q12H DOREEN Insulin Aspart 1 vial 06/02/17 16:30 09/01/17 11:23 Novolog Vial Sliding Scale - SQ 4 unit ACHS DOREEN Administration Protocol Ondansetron HCl 4 mg 06/02/17 16:15 06/03/17 13:52 Zofran Injection IVPB 4 mg Q6H PRN Administration NAUSEA Sodium Chloride 1,000 ml 06/02/17 12:16 06/02/17 13:03 Normal Saline - IV 1,000 ml Q20M PRN Administration MAP<65mm Hg OR SBP <90 ASSESSMENT AND PLAN: This is a 26 year old woman with a history of uncontrolled DM, HTN, diabetic foot ulcer, MRSA who presented to the ER with pain in right foot and erythema of right lower leg associated with fever, chills, nausea, vomiting. 1. Severe sepsis secondary to cellulitis of right leg - Still febrile. HR, lactic acid, creatinine improved - Has history of MRSA - ID consult appreciated - Continue Zosyn, Vancomycon 2. Acute kidney injury secondary to sepsis - Improved 3. Non-healing diabetic ulcer of right heel - No evidence of osteomyelitis on x-rays - Podiatry consult appreciated - s/p excisional debridement today - Wound care with Santyl - MRI to evaluate for osteomyelitis 3. Insulin-dependent diabetes mellitus, uncontrolled - Continue Levemir - Fingersticks with Novolog sliding scale - Check HgbA1c - Nutrition consult 4. Morbid obesity with BMI 60
--- NOTE | 2017-06-03 16:33 | CONSULT ---
Consult - Past Medical History Cardio/Vascular: Yes: HTN ...: No Endocrine: Yes: Diabetes Mellitus (Type 1) - Alcohol/Substance Use Hx Alcohol Use: No - Smoking History Smoking history: Never smoked Home Medications - Allergies Allergies/Adverse Reactions: Allergies Allergy/AdvReac Type Severity Reaction Status Date / Time morphine Allergy Verified 06/02/17 11:50 - Home Medications Home Medications: Ambulatory Orders Insulin Glargine,Hum.rec.anlog [Lantus Solostar PEN (NF)] 60 units SQ BID Insulin Lispro [Humalog] 100 unit SQ ASDIR 06/02/17 Physical Exam Vital Signs: Vital Signs Temperature 100.3 F H 06/03/17 11:00 Pulse Rate 95 H 06/03/17 11:02 Respiratory Rate 18 06/03/17 11:00 Blood Pressure 124/80 06/03/17 11:00 O2 Sat by Pulse Oximetry (%) 96 06/03/17 11:02 Labs: CBC, BMP 06/03/17 06:15 06/03/17 06:15 Assessment/Plan VAscular Surgery 26 yo female with uncontrolled IDDM, chronic non-healing right heel ulcer, prior MRSA (treated with whole-body scrub), and HTN who presents c/o 810 foot and leg pain, fever, abdominal pain, and vomiting. Her symptoms started two days ago with increased pain, swelling, and redness around the nonhealing right foot ulcer spreading up the right calf for which she took Tylenol yesterday with no relief. This morning her entire right leg was achy up to the hip, she had an onset of fever and chills, and she had an onset of vomiting and mid- abdominal pain. She has vomited too many times to count today. She did not take her morning dose of insulin d/t the vomiting, and has been measuring her CBG to be >400 at home in the past two days. She has had DKA in the past. She is supposed to be going to wound care appointment weekly but has not been in one month because she moved homes. She additionally notes recent shakiness, but denies chest pain, shortness of breath, diarrhea, constipation, or blood in the vomit or stool. Past History - Past Medical History Allergies/Adverse Reactions: Allergies Allergy/AdvReac Type Severity Reaction Status Date / Time morphine Allergy Verified 06/02/17 11:50 Home Medications: Ambulatory Orders Insulin Glargine,Hum.rec.anlog [Lantus Solostar PEN (NF)] 60 units SQ BID Insulin Lispro [Humalog] 100 unit SQ ASDIR 06/02/17 Diabetes: Yes HTN: Yes Other medical history: OBESITY - Surgical History Cholecystectomy: Yes - Psycho/Social/Smoking Cessation Hx Suicidal Ideation: No Smoking History: Never smoked Information on smoking cessation initiated: No Hx Alcohol Use: No Drug/Substance Use Hx: No Substance Use Type: None PE Head - NC/AT Lung - CTA Heart - RRR abd - soft,nt,nd ext -- right heel ulcer. clean, pink. right ankle and calf erythema very tender to touch. A/P Right heel ulcer with cellulitis. On IV antibiotics. MRI is ordered -- pt expressing that she may not do MRI cause it is closed. Will order plain cT of RLE and foot. Steve Hylton DO
[2017-06-03] MEDS: VANCOMYCIN 1,500 MG in SODIUM CHLORIDE 500 ML IVPB SCH (20:23)
[2017-06-03] MEDS ORDERED: INSULIN DETEMIR 100 UNITS/ML MDV SQ SCH (22:00)
[2017-06-04] MEDS ORDERED: PIPERACILLIN/TAZOBACTAM 4.5 GM VIAL IVPB ONE ×3 (01:02→18:15)
[2017-06-04] MEDS ORDERED: DEXTROSE 5%-WATER 100 ML IVPB ONE ×2 (01:02→10:19)
[2017-06-04] MEDS: ONDANSETRON 4 MG/2 ML VIAL IVPB PRN (01:28)
[2017-06-04] MEDS: SODIUM CHLORIDE 1,000 ML IV SCH ×2 (01:30→16:15)
[2017-06-04] MEDS: PIPERACILLIN/TAZOB 4.5 GM 4.5 GM in DEXTROSE 5%-WATER 100 ML IVPB SCH ×2 (01:57→10:23)
[2017-06-04] MEDS: INSULIN SLIDING SCALE (NOVOLOG) 1 VIAL SQ SCH ×4 (06:05→21:19)
[2017-06-04] MEDS: HYDROmorphone HCL CARPU-JECT 1 MG/1 ML DISP.SYRIN IVPUSH PRN (06:21)
[2017-06-04] MEDS ORDERED: oxyCODONE HCL 5 MG TABLET PO PRN (09:26)
[2017-06-04] MEDS: HEPARIN NA (PORCINE) 5,000 UNITS/ML 1ML VIAL SQ SCH ×2 (10:23→21:21)
[2017-06-04] MEDS: VANCOMYCIN 1,500 MG in SODIUM CHLORIDE 500 ML IVPB SCH ×2 (10:28→20:43)
[2017-06-04] MEDS: HYDROmorphone HCL CARPU-JECT 1 MG/1 ML DISP.SYRIN IVPB PRN ×2 (10:46→16:12)
[2017-06-04] MEDS ORDERED: PT OWN MED DRAWER 7, Y5N ONE ×2 (11:18→19:02)
[2017-06-04] MEDS: COLLAGENASE CLOSTRIDIUM HIST. 30 GRAMS TUBE TP SCH (11:20)
--- NOTE | 2017-06-04 11:24 | PN ---
Progress Note (short form) - Note Progress Note: Podiatry F/U: Seen/evaluated at bedside, NAD. Fevers quite improved, pain slowly improving. Denies F/V/N/C/SOB/CP. Currently afebrile, VSS. Recently obtained CT scan RLE. CANDE: R foot: pedal pulses palpable, TG warm, CFT brisk to all toes. R inferior heel DM ulcer with strong granular base, central aspect probes deep, no purulence, no fluctuance, no soft tissue crepitus, ascending cellulitis improving, mild tenderness to palpation. WBC: 11.3 ESR: 98 Wound Cx: staph aureus, strep pyogenes R foot CT scan: no evidence of osteomyelitis Imp: 26 year old IDDM F with R heel ulcer and cellulitis 1. C/w IV abx per ID 2. C/w santyl 3. Discussed with patient treatment options. I have recommended bone biopsy to definitively diagnose osteomyelitis. She is reluctant about surgery and wants to think about it for now. I will be on standby. Iesha Roberts DPM
[2017-06-04] MEDS ORDERED: INSULIN (NOVOLOG) ASPART 100 UNITS/ML 10ML VIAL ONE ×2 (11:44→21:11)
--- NOTE | 2017-06-04 12:19 | PN ---
Physical Exam: SUBJECTIVE: Patient seen and examined. Pain is controlled. Nausea improved but she has no appetite. OBJECTIVE: Vital Signs Period Temp Pulse Resp BP Sys/Wynn Pulse Ox Last 24 Hr 98.7 F-103.1 F 72-95 18-20 119-168/65-77 96 GENERAL: The patient is awake, alert, and fully oriented, in no acute distress. LUNGS: Breath sounds equal, clear to auscultation bilaterally, no wheezes, no crackles, no accessory muscle use. HEART: Regular rate and rhythm, S1, S2 without murmur, rub or gallop. ABDOMEN: Obese, soft, nontender, nondistended, normoactive bowel sounds, no guarding, no rebound, no hepatosplenomegaly, no masses. EXTREMITIES: No edema. Right heel ulcer with no purulent drainage. Minimal erythema and warmth with no tenderness of lower right leg. Laboratory Results - last 24 hr 06/03/17 06/03/17 06/03/17 17:23 19:00 21:20 POC Glucometer 256 231 Urine HCG, Qual Negative 06/04/17 06/04/17 05:52 11:41 POC Glucometer 223 242 Urine HCG, Qual Active Medications Generic Name Dose Route Start Last Admin Trade Name Freq PRN Reason Stop Dose Admin Acetaminophen 650 mg 06/02/17 16:15 06/03/17 16:12 Tylenol - PO 650 mg Q4H PRN Administration FEVER OR PAIN Albuterol Sulfate 1 amp 06/02/17 16:15 Ventolin 0.083% Nebulizer Soln - NEB Q4H PRN SHORT OF BREATH/WHEEZING Collagenase 1 applic 06/03/17 10:00 06/04/17 11:20 Santyl - TP 1 applic DAILY DOREEN Administration Heparin Sodium (Porcine) 5,000 unit 06/02/17 22:00 06/04/17 10:23 Heparin - SQ 5,000 unit BID DOREEN Administration Hydromorphone HCl 2 mg 06/04/17 09:26 06/04/17 10:46 Dilaudid Injection - IVPB 2 mg Q4H PRN Administration PAIN Sodium Chloride 1,000 mls @ 100 mls/hr 06/02/17 16:15 06/04/17 01:30 Normal Saline - IV 100 mls/hr ASDIR DOREEN Administration Piperacillin Sod/Tazobactam 100 mls @ 200 mls/hr 06/03/17 10:00 06/04/17 10:23 Sod 4.5 gm/ Dextrose IVPB 200 mls/hr Q8H-IV DOREEN Administration Vancomycin HCl 1,500 mg/ 500 mls @ 200 mls/hr 06/03/17 20:00 06/04/17 10:28 Sodium Chloride IVPB 200 mls/hr Q12H DOREEN Administration Insulin Aspart 1 vial 06/02/17 16:30 06/04/17 11:46 Novolog Vial Sliding Scale - SQ 4 unit ACHS DOREEN Administration Protocol Insulin Detemir 10 units 06/03/17 22:00 06/03/17 21:23 Levemir Vial SQ 10 unit HS DOREEN Administration Ondansetron HCl 4 mg 06/02/17 16:15 06/04/17 01:28 Zofran Injection IVPB 4 mg Q6H PRN Administration NAUSEA Oxycodone HCl 5 mg 06/04/17 09:26 Roxicodone - PO Q4H PRN PAIN Sodium Chloride 1,000 ml 06/02/17 12:16 06/02/17 13:03 Normal Saline - IV 1,000 ml Q20M PRN Administration MAP<65mm Hg OR SBP <90 ASSESSMENT/PLAN: This is a 26 year old woman with a history of uncontrolled DM, HTN, diabetic foot ulcer, MRSA who presented to the ER with pain in right foot and erythema of right lower leg associated with fever, chills, nausea, vomiting. 1. Severe sepsis secondary to cellulitis of right leg - Temp 103.1 yesterday afternoon - Tachycardia, WBC, lactic acid, creatinine improved - Has history of MRSA - Continue Zosyn, Vancomycon 2. Acute kidney injury secondary to sepsis - Improved 3. Non-healing diabetic ulcer of right heel - No evidence of osteomyelitis on x-rays - s/p excisional debridement 06/03 - Continue wound care with Santyl - C-RP 18.7, ESR 98 - MRI unable to be done secondary to claustrphobia - CT shows soft tissue swellingof distal right leg and foot, right heel ulcer , no bone destruction or periosteal elevation 3. Insulin-dependent diabetes mellitus, uncontrolled - Increase Levemir - Fingersticks with Novolog sliding scale - Check HgbA1c 4. Morbid obesity with BMI 60 Visit type - Emergency Visit Emergency Visit: Yes ED Registration Date: 06/02/17 Care time: The patient presented to the Emergency Department on the above date and was hospitalized for further evaluation of their emergent condition. - New Patient This patient is new to me today: No - Critical Care Critical Care patient: No - Discharge Referral Referred to [facility] Med P.C.: No
[2017-06-04] MEDS ORDERED: INSULIN DETEMIR 100 UNITS/ML MDV SQ SCH (12:29)
[2017-06-04 13:27] LABS: BASOPHIL 0.3 % (0-2.0); EOSINOPHIL 1.4 % (0-4.5); MCH 25.7 pg (25.7-33.7); MCHC 32.3 g/dl (32.0-36.0); MEAN CELL VOLUME 79.7 fl (80-96); MEAN PLT VOLUME 9.5 fl (7.5-11.1); NEUTROPHILS 74.1 % (42.8-82.8); PLATELET COUNT 203 K/MM3 (134-434); RDW 15.2 % (11.6-15.6); WHITE BLOOD COUNT 8.4 K/mm3 (4.0-10.0)
[2017-06-04 13:52] LABS: ALBUMIN 2.1 g/dl (3.4-5.0); ANION GAP 8 (8-16); CALCIUM 8.3 mg/dL (8.5-10.1); CO2 27 mmol/L (21-32); CREATININE 1.1 mg/dL (0.55-1.02); GLUCOSE,RANDOM 262 mg/dL (74-106)
--- NOTE | 2017-06-04 14:27 | EKG ---
Test Reason : Blood Pressure : / mmHG Vent. Rate : 113 BPM Atrial Rate : 113 BPM P-R Int : 146 ms QRS Dur : 078 ms QT Int : 358 ms P-R-T Axes : 027 017 049 degrees QTc Int : 491 ms SINUS TACHYCARDIA OTHERWISE NORMAL ECG NO PREVIOUS ECGS AVAILABLE CLINICAL CORRELATION IS RECOMMENDED Confirmed by HARRISON NIXON MD ([id number] on 06/04/2017 2:26:56 PM Referred By: Confirmed By:HARRISON NIXON MD
[2017-06-04] MEDS ORDERED: SODIUM CHLORIDE 100 ML IVPB ONE (18:16)
[2017-06-04] MEDS: PIPERACILLIN/TAZOB 4.5 GM 4.5 GM in SODIUM CHLORIDE 100 ML IVPB SCH (18:18)
[2017-06-04] MEDS ORDERED: diphenhydrAMINE HCL 25 MG CAPSULE (FP) PO ONE (19:08)
[2017-06-05] MEDS ORDERED: PIPERACILLIN/TAZOBACTAM 4.5 GM VIAL IVPB ONE (00:59)
[2017-06-05] MEDS ORDERED: SODIUM CHLORIDE 100 ML IVPB ONE (01:00)
[2017-06-05] MEDS: HYDROmorphone HCL CARPU-JECT 1 MG/1 ML DISP.SYRIN IVPB PRN ×4 (01:08→21:08)
[2017-06-05] MEDS: PIPERACILLIN/TAZOB 4.5 GM 4.5 GM in SODIUM CHLORIDE 100 ML IVPB SCH ×2 (01:08→10:45)
[2017-06-05] MEDS: SODIUM CHLORIDE 1,000 ML IV SCH ×3 (01:42→18:05)
[2017-06-05] MEDS: INSULIN SLIDING SCALE (NOVOLOG) 1 VIAL SQ SCH ×3 (06:23→18:07)
[2017-06-05 09:48] LABS: BASOPHIL 0.6 % (0-2.0); EOSINOPHIL 2.4 % (0-4.5); MCH 25.6 pg (25.7-33.7); MCHC 32.1 g/dl (32.0-36.0); MEAN CELL VOLUME 79.8 fl (80-96); MEAN PLT VOLUME 9.1 fl (7.5-11.1); NEUTROPHILS 65.8 % (42.8-82.8); PLATELET COUNT 209 K/MM3 (134-434); RDW 15.1 % (11.6-15.6); WHITE BLOOD COUNT 7.3 K/mm3 (4.0-10.0)
[2017-06-05] MEDS: VANCOMYCIN 1,500 MG in SODIUM CHLORIDE 500 ML IVPB SCH (09:51)
[2017-06-05 10:00] LABS: ANION GAP 10 (8-16); CALCIUM 8.1 mg/dL (8.5-10.1); CO2 24 mmol/L (21-32); CREATININE 1.2 mg/dL (0.55-1.02); GLUCOSE,RANDOM 240 mg/dL (74-106)
--- NOTE | 2017-06-05 10:18 | PN ---
Progress Note (short form) - Note Progress Note: ID Vancomycin and Zosyn Afebrile Selected Entries 06/05/17 10:00 Temperature 98.6 F Pulse Rate 83 Respiratory 20 Rate Blood Pressure 140/79 Heel ulcer probes deep as per podiatry Microbiology 06/03/17 09:00 Foot - Right Heel Gram Stain - Final 06/02/17 12:45 Ulcer Gram Stain - Final 06/02/17 12:45 Ulcer Wound Culture - Final Staphylococcus Aureus Streptococcus Pyogenes Grp A 06/02/17 12:32 Foot - Right Heel Gram Stain - Final 06/02/17 12:32 Foot - Right Heel Wound Culture - Final Staphylococcus Aureus Streptococcus Pyogenes Grp A Diphtheroid/Corynebacterium Proteus Vulgaris 06/03/17 09:00 Foot - Right Heel Wound Culture - Preliminary Presumptive Mssa (Pbp2a Neg) Diphtheroid/Corynebacterium Staphylococcus Coagulase Neg Laboratory Tests 06/02/17 06/04/17 06/05/17 12:39 12:23 09:05 WBC 7.3 RBC 3.46 L Hct 27.6 L Plt Count 209 BUN 11 Creatinine 1.1 H D C-Reactive Protein 18.7 H 06/05/17 09:05 WBC RBC Hct Plt Count BUN Pending Creatinine Pending C-Reactive Protein Assessment May have to treat for osteomyelitis without bone biopsy cultures noted Proteus not sensitive Ceftriaxone Ceftriaxone plus a quinolone po (PICC ) Belen MCMANUS
--- NOTE | 2017-06-05 10:41 | PN ---
Physical Exam: SUBJECTIVE: Patient seen and examined. She has no complaints. Appetite is improving. OBJECTIVE: Vital Signs Period Temp Pulse Resp BP Sys/Wynn Pulse Ox Last 24 Hr 98.0 F-98.9 F 68-83 16-20 116-140/61-84 95-95 GENERAL: The patient is awake, alert, and fully oriented, in no acute distress. LUNGS: Breath sounds equal, clear to auscultation bilaterally, no wheezes, no crackles, no accessory muscle use. HEART: Regular rate and rhythm, S1, S2 without murmur, rub or gallop. ABDOMEN: Obese, soft, nontender, nondistended, normoactive bowel sounds, no guarding, no rebound, no hepatosplenomegaly, no masses. EXTREMITIES: No edema. Right heel ulcer with no purulent drainage. Minimal erythema and warmth with no tenderness of lower right leg. Laboratory Results - last 24 hr 06/04/17 06/04/17 06/04/17 11:41 12:23 12:23 WBC 8.4 RBC 3.54 L Hgb 9.1 L D Hct 28.2 L MCV 79.7 L MCH 25.7 MCHC 32.3 RDW 15.2 Plt Count 203 MPV 9.5 Neutrophils % 74.1 Lymphocytes % 16.1 D Monocytes % 8.1 Eosinophils % 1.4 D Basophils % 0.3 Sodium 141 Potassium 3.9 Chloride 106 Carbon Dioxide 27 Anion Gap 8 BUN 11 Creatinine 1.1 H D POC Glucometer 242 Random Glucose 262 H Hemoglobin A1c % Calcium 8.3 L Albumin 2.1 L 06/04/17 06/04/17 06/05/17 17:58 21:17 06:18 WBC RBC Hgb Hct MCV MCH MCHC RDW Plt Count MPV Neutrophils % Lymphocytes % Monocytes % Eosinophils % Basophils % Sodium Potassium Chloride Carbon Dioxide Anion Gap BUN Creatinine POC Glucometer 256 326 268 Random Glucose Hemoglobin A1c % Calcium Albumin 06/05/17 06/05/17 06/05/17 09:05 09:05 09:05 WBC 7.3 RBC 3.46 L Hgb 8.9 L Hct 27.6 L MCV 79.8 L MCH 25.6 L MCHC 32.1 RDW 15.1 Plt Count 209 MPV 9.1 Neutrophils % 65.8 Lymphocytes % 22.5 D Monocytes % 8.7 Eosinophils % 2.4 Basophils % 0.6 Sodium 141 Potassium 3.6 Chloride 107 Carbon Dioxide 24 Anion Gap 10 BUN 8 D Creatinine 1.2 H POC Glucometer Random Glucose 240 H Hemoglobin A1c % 14.6 H Calcium 8.1 L Albumin Active Medications Generic Name Dose Route Start Last Admin Trade Name Freq PRN Reason Stop Dose Admin Acetaminophen 650 mg 06/02/17 16:15 06/03/17 16:12 Tylenol - PO 650 mg Q4H PRN Administration FEVER OR PAIN Albuterol Sulfate 1 amp 06/02/17 16:15 Ventolin 0.083% Nebulizer Soln - NEB Q4H PRN SHORT OF BREATH/WHEEZING Cefepime HCl 1 gm 06/05/17 18:00 Maxipime (Restricted To Id) - IVPB Q8H-IV [facility] Protocol Collagenase 1 applic 06/03/17 10:00 06/04/17 11:20 Santyl - TP 1 applic DAILY DOREEN Administration Heparin Sodium (Porcine) 5,000 unit 06/02/17 22:00 06/04/17 21:21 Heparin - SQ 5,000 unit BID DOREEN Administration Hydromorphone HCl 2 mg 06/04/17 09:26 06/05/17 05:01 Dilaudid Injection - IVPB 2 mg Q4H PRN Administration PAIN Sodium Chloride 1,000 mls @ 100 mls/hr 06/02/17 16:15 06/05/17 01:42 Normal Saline - IV 100 mls/hr ASDIR DOREEN Administration Metronidazole 100 mls @ 100 mls/hr 06/05/17 18:00 Flagyl 500mg Premixed Ivpb - IVPB Q8H-IV DOREEN Insulin Aspart 1 vial 06/02/17 16:30 06/05/17 06:23 Novolog Vial Sliding Scale - SQ 6 unit ACHS DOREEN Administration Protocol Insulin Detemir 15 units 06/04/17 12:29 06/04/17 21:18 Levemir Vial SQ 15 units HS DOREEN Administration Ondansetron HCl 4 mg 06/02/17 16:15 06/04/17 01:28 Zofran Injection IVPB 4 mg Q6H PRN Administration NAUSEA Oxycodone HCl 5 mg 06/04/17 09:26 Roxicodone - PO Q4H PRN PAIN Sodium Chloride 1,000 ml 06/02/17 12:16 06/02/17 13:03 Normal Saline - IV 1,000 ml Q20M PRN Administration MAP<65mm Hg OR SBP <90 Microbiology 06/03/17 09:00 Foot - Right Heel Gram Stain - Final 06/03/17 09:00 Foot - Right Heel Wound Culture - Final Staphylococcus Aureus Diphtheroid/Corynebacterium Staphylococcus Coagulase Neg 06/02/17 12:32 Foot - Right Heel Gram Stain - Final 06/02/17 12:32 Foot - Right Heel Wound Culture - Final Staphylococcus Aureus Streptococcus Pyogenes Grp A Diphtheroid/Corynebacterium Proteus Vulgaris 06/02/17 12:45 Ulcer Gram Stain - Final 06/02/17 12:45 Ulcer Wound Culture - Final Staphylococcus Aureus Streptococcus Pyogenes Grp A 06/02/17 12:16 Blood - Peripheral Venous Blood Culture - Preliminary NO GROWTH OBTAINED AFTER 48 HOURS, INCUBATION TO CONTINUE FOR 3 DAYS. 06/02/17 12:39 Blood - Peripheral Venous Blood Culture - Preliminary NO GROWTH OBTAINED AFTER 48 HOURS, INCUBATION TO CONTINUE FOR 3 DAYS. 06/02/17 16:45 Urine - Urine Clean Catch Urine Culture - Final NO GROWTH OBTAINED ASSESSMENT/PLAN: This is a 26 year old woman with a history of uncontrolled DM, HTN, diabetic foot ulcer, MRSA who presented to the ER with pain in right foot and erythema of right lower leg associated with fever, chills, nausea, vomiting. 1. Severe sepsis secondary to cellulitis of right leg and possible osteomyelitis of right heel - Afebrile - Has history of MRSA - Wound cultures growing MSSA, Proteus, Diphtheroid/Corynebacterium - Antibiotics changed to Cefepime, Flagyl to cover Proteus, anaerobes - Will attempt MRI of right foot 2. Acute kidney injury secondary to sepsis - Improved - Creatinine increasing - COntinue IV fluid and monitor creatinine 3. Non-healing diabetic ulcer of right heel - No evidence of osteomyelitis on x-rays or CT - s/p excisional debridement 06/03 - Continue wound care with Santyl - C-RP 18.7, ESR 98 - Will attempt MRI (patient reports being claustrophobic) 4. Insulin-dependent diabetes mellitus, uncontrolled - HgbA1c 14.6 - Continue Levemir - Add Novolog with meals and continue sliding scale 5. Anemia, microcytic - Check iron studies, stool occult blood, TSH 6. Morbid obesity with BMI 60 Visit type - Emergency Visit Emergency Visit: Yes ED Registration Date: 06/02/17 Care time: The patient presented to the Emergency Department on the above date and was hospitalized for further evaluation of their emergent condition. - New Patient This patient is new to me today: No - Critical Care Critical Care patient: No - Discharge Referral Referred to [facility] Med P.C.: No
[2017-06-05] MEDS: HEPARIN NA (PORCINE) 5,000 UNITS/ML 1ML VIAL SQ SCH ×2 (11:03→21:12)
[2017-06-05] MEDS ORDERED: DEXTROSE 5%-WATER 100 ML IVPB ONE ×2 (12:10→17:34)
[2017-06-05] MEDS ORDERED: CEFEPIME HCL 1 GM VIAL (RESTRICTED TO ID) ONE ×2 (12:10→17:34)
[2017-06-05] MEDS: INSULIN (NOVOLOG) ASPART 100 UNITS/ML 10ML VIAL SQ SCH ×2 (12:15→18:08)
[2017-06-05] MEDS: CEFEPIME 1 GM in DEXTROSE 5%-WATER 100 ML IVPB SCH ×2 (12:15→18:08)
[2017-06-05] MEDS: METRONIDAZOLE 500 MG PREMIXED 100 ML IVPB SCH ×2 (13:29→18:56)
[2017-06-05] MEDS ORDERED: PT OWN MED DRAWER 7, Y5N ONE (14:02)
[2017-06-05] MEDS: COLLAGENASE CLOSTRIDIUM HIST. 30 GRAMS TUBE TP SCH (14:52)
[2017-06-05] MEDS: ACETAMINOPHEN 325 MG TABLET (FP) PO PRN (17:38)
[2017-06-05] MEDS ORDERED: CEFEPIME HCL 2 GM VIAL (RESTRICTED TO ID) IVPB SCH (18:00)
[2017-06-05] MEDS ORDERED: INSULIN (NOVOLOG) ASPART 100 UNITS/ML 10ML VIAL ONE (21:02)
[2017-06-05] MEDS: INSULIN DETEMIR 100 UNITS/ML MDV SQ SCH (21:12)
[2017-06-06] MEDS ORDERED: CEFEPIME HCL 1 GM VIAL (RESTRICTED TO ID) ONE ×4 (01:21→16:48)
[2017-06-06] MEDS ORDERED: DEXTROSE 5%-WATER 100 ML IVPB ONE ×4 (01:21→16:48)
[2017-06-06] MEDS: METRONIDAZOLE 500 MG PREMIXED 100 ML IVPB SCH ×3 (01:36→20:19)
[2017-06-06] MEDS: CEFEPIME 1 GM in DEXTROSE 5%-WATER 100 ML IVPB SCH ×3 (01:36→18:44)
[2017-06-06] MEDS: HYDROmorphone HCL CARPU-JECT 1 MG/1 ML DISP.SYRIN IVPB PRN ×5 (01:36→22:20)
[2017-06-06] MEDS: ACETAMINOPHEN 325 MG TABLET (FP) PO PRN (01:45)
[2017-06-06] MEDS: INSULIN SLIDING SCALE (NOVOLOG) 1 VIAL SQ SCH ×3 (06:53→16:42)
[2017-06-06] MEDS: INSULIN (NOVOLOG) ASPART 100 UNITS/ML 10ML VIAL SQ SCH ×3 (07:18→16:41)
[2017-06-06 07:21] LABS: MCH 25.8 pg (25.7-33.7); MCHC 32.4 g/dl (32.0-36.0); MEAN CELL VOLUME 79.5 fl (80-96); PLATELET COUNT 202 K/MM3 (134-434); WHITE BLOOD COUNT 6.7 K/mm3 (4.0-10.0)
[2017-06-06 07:58] LABS: ANION GAP 8 (8-16); CO2 25 mmol/L (21-32); CREATININE 1.1 mg/dL (0.55-1.02); GLUCOSE,RANDOM 205 mg/dL (74-106)
[2017-06-06 08:11] LABS: FERRITIN 407.188 ng/ml (6.9-282.5); THYROID STIMULATING HORMONE 1.88 uIU/ml (0.358-3.74)
--- NOTE | 2017-06-06 09:10 | PN ---
Progress Note (short form) - Note Progress Note: still with nausea reports less leg pain feels better Vital Signs Period Temp Pulse Resp BP Sys/Wynn Pulse Ox Last 24 Hr 98.6 F-100.3 F 70-84 16-20 104-160/51-97 96 cor-rrr lungs clear abd soft,nt ext dressing change just done so will examine tomorrow less erythema (much below prior markings), less tender to touch CBC, BMP 06/06/17 06:20 06/06/17 06:20 Microbiology 06/03/17 09:00 Foot - Right Heel Gram Stain - Final 06/03/17 09:00 Foot - Right Heel Wound Culture - Final Staphylococcus Aureus Diphtheroid/Corynebacterium Staphylococcus Coagulase Neg 06/02/17 12:16 Blood - Peripheral Venous Blood Culture - Preliminary NO GROWTH OBTAINED AFTER 72 HOURS, INCUBATION TO CONTINUE FOR 2 DAYS. 06/02/17 12:39 Blood - Peripheral Venous Blood Culture - Preliminary NO GROWTH OBTAINED AFTER 72 HOURS, INCUBATION TO CONTINUE FOR 2 DAYS. 06/02/17 12:32 Foot - Right Heel Gram Stain - Final 06/02/17 12:32 Foot - Right Heel Wound Culture - Final Staphylococcus Aureus Streptococcus Pyogenes Grp A Diphtheroid/Corynebacterium Proteus Vulgaris 06/02/17 12:45 Ulcer Gram Stain - Final 06/02/17 12:45 Ulcer Wound Culture - Final Staphylococcus Aureus Streptococcus Pyogenes Grp A 06/02/17 16:45 Urine - Urine Clean Catch Urine Culture - Final NO GROWTH OBTAINED a/p sepsis severe soft tissue infection of the RLE probable osteomyelitis diabetes continue cefepime/flagyl for MRI overall improved Problem List - Problems (1) Sepsis Code(s): A41.9 - SEPSIS, UNSPECIFIED ORGANISM Qualifiers: Sepsis type: sepsis due to unspecified organism Qualified Code(s): A41.9 - Sepsis, unspecified organism (2) Soft tissue infection Code(s): L08.9 - LOCAL INFECTION OF THE SKIN AND SUBCUTANEOUS TISSUE, UNSP (3) Osteomyelitis Code(s): M86.9 - OSTEOMYELITIS, UNSPECIFIED (4) Diabetes Code(s): E11.9 - TYPE 2 DIABETES MELLITUS WITHOUT COMPLICATIONS Qualifiers: Diabetes mellitus type: other specified (including BIJAN) Diabetes mellitus complication status: with hyperglycemia 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
[2017-06-06] MEDS: SODIUM CHLORIDE 1,000 ML IV SCH ×2 (10:10→16:43)
--- NOTE | 2017-06-06 10:15 | PN ---
Physical Exam: SUBJECTIVE: Patient seen and examined at bedside. Patient states she feels better. The affected limb hurts less and is less red and swollen today. Patient continues to complain of nausea. fever to 100.3 this AM OBJECTIVE: Vital Signs Period Temp Pulse Resp BP Sys/Wnyn Pulse Ox Last 24 Hr 98.6 F-100.3 F 70-84 16-20 104-160/51-97 95-96 GENERAL: The patient is awake, alert, and fully oriented, in no acute distress. HEAD: Normal with no signs of trauma. EYES: extraocular movements intact, sclera anicteric, conjunctiva clear. No ptosis. NECK: Trachea midline, full range of motion, supple. LUNGS: Breath sounds equal, clear to auscultation bilaterally, no wheezes, no crackles, no accessory muscle use. HEART: Regular rate and rhythm, S1, S2 without murmur, rub or gallop. ABDOMEN: Soft, nontender, nondistended, normoactive bowel sounds, no guarding, no rebound. EXTREMITIES: 2+ pulses, warm, well-perfused. Erythema, swelling and warmth over the right foot and calf, improved today NEUROLOGICAL: Cranial nerves II through XII grossly intact. Normal speech, gait not observed. PSYCH: Normal mood, normal affect. SKIN: Warm, dry, normal turgor erythema over right lower limb; improved today. Laboratory Results - last 24 hr 06/05/17 06/05/17 06/05/17 09:05 09:05 11:46 WBC RBC Hgb Hct MCV MCH MCHC RDW Plt Count MPV Sodium 141 Potassium 3.6 Chloride 107 Carbon Dioxide 24 Anion Gap 10 BUN 8 D Creatinine 1.2 H POC Glucometer 303 Random Glucose 240 H Hemoglobin A1c % 14.6 H Calcium 8.1 L Ferritin [facility] 06/05/17 06/05/17 06/06/17 17:16 21:10 06:20 WBC 6.7 RBC 3.36 L Hgb 8.7 L Hct 26.7 L MCV 79.5 L MCH 25.8 MCHC 32.4 RDW 15.0 Plt Count 202 MPV 9.0 Sodium Potassium Chloride Carbon Dioxide Anion Gap BUN Creatinine POC Glucometer 248 183 Random Glucose Hemoglobin A1c % Calcium Ferritin [facility] 06/06/17 06/06/17 06:20 06:46 WBC RBC Hgb Hct MCV MCH MCHC RDW Plt Count MPV Sodium 143 Potassium 3.5 Chloride 110 H Carbon Dioxide 25 Anion Gap 8 BUN 7 Creatinine 1.1 H POC Glucometer 200 Random Glucose 205 H Hemoglobin A1c % Calcium 8.0 L Ferritin 407.188 H TSH 1.88 Active Medications Generic Name Dose Route Start Last Admin Trade Name Freq PRN Reason Stop Dose Admin Acetaminophen 650 mg 06/02/17 16:15 06/06/17 01:45 Tylenol - PO 650 mg Q4H PRN Administration FEVER OR PAIN Albuterol Sulfate 1 amp 06/02/17 16:15 Ventolin 0.083% Nebulizer Soln - NEB Q4H PRN SHORT OF BREATH/WHEEZING Collagenase 1 applic 06/03/17 10:00 06/05/17 14:52 Santyl - TP 1 applic DAILY DOREEN Administration Heparin Sodium (Porcine) 5,000 unit 06/02/17 22:00 06/05/17 21:12 Heparin - SQ 5,000 unit BID DOREEN Administration Hydromorphone HCl 2 mg 06/04/17 09:26 06/06/17 06:52 Dilaudid Injection - IVPB 2 mg Q4H PRN Administration PAIN Sodium Chloride 1,000 mls @ 100 mls/hr 06/02/17 16:15 06/05/17 18:05 Normal Saline - IV Not Given ASDIR DOREEN Metronidazole 100 mls @ 100 mls/hr 06/05/17 12:15 06/06/17 01:36 Flagyl 500mg Premixed Ivpb - IVPB 100 mls/hr Q8H-IV DOREEN Administration Cefepime HCl 1 gm/ Dextrose 100 mls @ 200 mls/hr 06/05/17 12:15 06/06/17 01:36 IVPB 200 mls/hr Q8H-IV DOREEN Administration Insulin Aspart 1 vial 06/05/17 12:15 06/06/17 06:53 Novolog Vial Sliding Scale - SQ 2 units TIDAC DOREEN Administration Protocol Insulin Aspart 6 units 06/05/17 12:15 06/06/17 07:18 Novolog Vial SQ Not Given TIDAC [facility] Protocol Insulin Detemir 20 units 06/05/17 10:35 06/05/17 21:12 Levemir Vial SQ 20 units HS DOREEN Administration Ondansetron HCl 4 mg 06/02/17 16:15 09/02/17 01:28 Zofran Injection IVPB 4 mg Q6H PRN Administration NAUSEA Oxycodone HCl 5 mg 06/04/17 09:26 06/05/17 17:37 Roxicodone - PO 5 mg Q4H PRN Administration PAIN Sodium Chloride 1,000 ml 06/02/17 12:16 06/02/17 13:03 Normal Saline - IV 1,000 ml Q20M PRN Administration MAP<65mm Hg OR SBP <90 ASSESSMENT/PLAN: 26 yo f w/ PMH DM, Asthma, HTN, Chronic foot ulcer presents to the ED c/o fevers , chills as well as redness, pain and swelling of the right foot for one day. Patient admitted for sepsis 2/2 infected diabetic foot ulcer. #sepsis 2/2 right lower leg cellulitis 2/2 diabetic foot ulcer -wound culture growing MSSA, strep pyogenes, proteus, corynebacteria -Bcx and Ucx no growth to date -cefepime and flagyl IV -s/p wound debridement 06/03 -Tylenol PRN fever -CT shows no gas in tissue or overt bone destruction -MRI unable to be performed 2/2 patient's body habitus -DUPLEX U/S lower extremity negative for DVT -Podiatry to conduct bone biopsy if unable to get imaging #nausea/ vomiting -u/s abdomen shows hepatosplenomegaly, nonalcoholic fatty liver dz, renal hydronephrosis w/o obstruction -zofran for nausea #uncontrolled DM -A1c 14.6% -ISS -levemir 20u SQ HS -novolog 6u TIDAC -Diabetic diet #Asthma -PRN Nebs #HTN- BP controlled at this time -will resume patient's home enalapril 10mg daily if needed. 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: with [facility] use Qualified Code(s): E13.65 - Other specified diabetes mellitus with hyperglycemia; Z79.4 - [facility] (current) use of insulin (2) Foot ulcer, right Code(s): L97.519 - NON-PRS CHRONIC ULCER OTH PRT RIGHT FOOT W UNSP SEVERITY Qualifiers: Non-pressure ulcer stage: unspecified non-pressure ulcer stage Qualified Code(s): L97.519 - Non-pressure chronic ulcer of other part of right foot with unspecified severity (3) Sepsis Code(s): A41.9 - SEPSIS, UNSPECIFIED ORGANISM Qualifiers: Sepsis type: sepsis due to unspecified organism Qualified Code(s): A41.9 - Sepsis, unspecified organism (4) Vomiting Code(s): R11.10 - VOMITING, UNSPECIFIED Qualifiers: Vomiting type: unspecified Vomiting Intractability: non-intractable Nausea presence: with nausea Qualified Code(s): R11.2 - Nausea with vomiting, unspecified Visit type - Emergency Visit Emergency Visit: Yes ED Registration Date: 06/02/17 Care time: The patient presented to the Emergency Department on the above date and was hospitalized for further evaluation of their emergent condition. - New Patient This patient is new to me today: No - Critical Care Critical Care patient: No
[2017-06-06] MEDS: COLLAGENASE CLOSTRIDIUM HIST. 30 GRAMS TUBE TP SCH (10:19)
[2017-06-06] MEDS: HEPARIN NA (PORCINE) 5,000 UNITS/ML 1ML VIAL SQ SCH ×2 (10:22→22:17)
--- NOTE | 2017-06-06 10:53 | PN ---
Teaching Attending Note Name of Resident: Emmanuel Frazier ATTENDING PHYSICIAN STATEMENT I saw and evaluated the patient. I reviewed the resident's note and discussed the case with the resident. I agree with the resident's findings and plan as documented. SUBJECTIVE: Patient feels nauseous. OBJECTIVE: Vital Signs Period Temp Pulse Resp BP Sys/Wynn Pulse Ox Last 24 Hr 98.6 F-100.3 F 70-84 16-20 104-160/51-97 95-96 GENERAL: The patient is awake, alert, and fully oriented, in no acute distress. LUNGS: Breath sounds equal, clear to auscultation bilaterally, no wheezes, no crackles, no accessory muscle use. HEART: Regular rate and rhythm, S1, S2 without murmur, rub or gallop. ABDOMEN: Obese, soft, nontender, nondistended, normoactive bowel sounds, no guarding, no rebound, no hepatosplenomegaly, no masses. EXTREMITIES: No edema. Right heel ulcer clean with no purulent drainage. Right lower leg erythema improved. Current Medications Generic Name Dose Route Start Last Admin Trade Name Nikita PRN Reason Stop Dose Admin Acetaminophen 650 mg 06/02/17 16:15 06/06/17 01:45 Tylenol - PO 650 mg Q4H PRN Administration FEVER OR PAIN Albuterol Sulfate 1 amp 06/02/17 16:15 Ventolin 0.083% Nebulizer Soln - NEB Q4H PRN SHORT OF BREATH/WHEEZING Collagenase 1 applic 06/03/17 10:00 06/06/17 10:19 Santyl - TP Not Given DAILY DOREEN Heparin Sodium (Porcine) 5,000 unit 06/02/17 22:00 06/06/17 10:22 Heparin - SQ 5,000 unit BID DOREEN Administration Hydromorphone HCl 2 mg 06/04/17 09:26 06/06/17 06:52 Dilaudid Injection - IVPB 2 mg Q4H PRN Administration PAIN Sodium Chloride 1,000 mls @ 100 mls/hr 06/02/17 16:15 06/06/17 10:10 Normal Saline - IV 100 mls/hr ASDIR DOREEN Administration Metronidazole 100 mls @ 100 mls/hr 06/05/17 12:15 06/06/17 10:11 Flagyl 500mg Premixed Ivpb - IVPB 100 mls/hr Q8H-IV DOREEN Administration Cefepime HCl 1 gm/ Dextrose 100 mls @ 200 mls/hr 06/05/17 12:15 06/06/17 01:36 IVPB 200 mls/hr Q8H-IV DOREEN Administration Insulin Aspart 1 vial 06/05/17 12:15 06/06/17 06:53 Novolog Vial Sliding Scale - SQ 2 units TIDAC DOREEN Administration Protocol Insulin Aspart 6 units 06/05/17 12:15 06/06/17 07:18 Novolog Vial SQ Not Given TIDACOX [place] Protocol Insulin Detemir 20 units 06/05/17 10:35 06/05/17 21:12 Levemir Vial SQ 20 units HS DOREEN Administration Ondansetron HCl 4 mg 06/02/17 16:15 06/04/17 01:28 Zofran Injection IVPB 4 mg Q6H PRN Administration NAUSEA Oxycodone HCl 5 mg 06/04/17 09:26 06/05/17 17:37 Roxicodone - PO 5 mg Q4H PRN Administration PAIN Sodium Chloride 1,000 ml 06/02/17 12:16 06/02/17 13:03 Normal Saline - IV 1,000 ml Q20M PRN Administration MAP<65mm Hg OR SBP <90 ASSESSMENT AND PLAN: This is a 26 year old woman with a history of uncontrolled DM, HTN, diabetic foot ulcer, MRSA who presented to the ER with pain in right foot and erythema of right lower leg associated with fever, chills, nausea, vomiting. 1. Severe sepsis secondary to cellulitis of right leg and possible osteomyelitis of right heel - Had temp 100.3 overnight - Has history of MRSA - Wound cultures growing MSSA, Proteus, Diphtheroid/Corynebacterium - On Cefepime, Flagyl to cover Proteus, anaerobes - MRI of right foot not able to be done secondary to patient's weight 2. Acute kidney injury secondary to sepsis - Improved - Continue IV fluid until PO intake improves 3. Non-healing diabetic ulcer of right heel - No evidence of osteomyelitis on x-rays or CT - s/p excisional debridement 06/03 - Continue wound care with Santyl - C-RP 18.7, ESR 98 - MRI not able to be done secondary to patient's weight - Podiatry follow-up 4. Insulin-dependent diabetes mellitus, uncontrolled - HgbA1c 14.6 - Control is improving on Levemir 20 units qhs, Novolog 6 units ac, Novolog sliding scale ac 5. Anemia, microcytic - Ferritin is high. Iron, TIBC, iron sat pending. TSH normal - Stool occult blood ordered 6. Morbid obesity with BMI 57.6 7. Nausea - Continue Zofran as needed
--- NOTE | 2017-06-06 11:11 | PN ---
Progress Note (short form) - Note Progress Note: Podiatry: Seen/evaluated at bedside, NAD. Pain improved, denies F/V/N/C/SOB/CP. Had temp to 100 F last night, currently with low grade temp 99 F. CANDE: R foot: inferior heel ulcer with fibrogranular base, central aspect probes deep , ascending erythema to the lower leg and dorsal midfoot, no fluctuance, no purulence, no soft tissue crepitus. Moderate tenderness to palpation. WBC: 6.7 ESR: 98 Blood Cx: no growth x 72 hrs Wound Cx: staph, strep pyogenes R foot CT: no cortical destruction, periosteal reaction Imp: 26 year old IDDM F with R heel ulcer, assess for osteomyelitis 1. C/w IV abx per ID 2. C/w local wound care 3. Heel offloading and glycemic control 4. Recommended heel ulcer debridement and bone biopsy to patient. She is unsure at this time whether to proceed with OR and wants to wait until tomorrow to make a decision. She will likely need further IV abx treatment. 5. Will talk to patient tomorrow. Iesha Roberts DPM
[2017-06-06] MEDS ORDERED: INSULIN (NOVOLOG) ASPART 100 UNITS/ML 10ML VIAL ONE ×2 (12:10→16:49)
[2017-06-06] MEDS: ONDANSETRON 4 MG/2 ML VIAL IVPB PRN ×2 (17:18→23:31)
[2017-06-06] MEDS: INSULIN DETEMIR 100 UNITS/ML MDV SQ SCH (22:19)
[2017-06-07] MEDS ORDERED: DEXTROSE 5%-WATER 100 ML IVPB ONE ×3 (01:43→15:04)
[2017-06-07] MEDS ORDERED: CEFEPIME HCL 1 GM VIAL (RESTRICTED TO ID) ONE ×3 (01:43→15:04)
[2017-06-07] MEDS: CEFEPIME 1 GM in DEXTROSE 5%-WATER 100 ML IVPB SCH ×2 (01:50→09:41)
[2017-06-07] MEDS: METRONIDAZOLE 500 MG PREMIXED 100 ML IVPB SCH ×2 (01:51→09:40)
[2017-06-07] MEDS: HYDROmorphone HCL CARPU-JECT 1 MG/1 ML DISP.SYRIN IVPB PRN ×3 (02:42→12:36)
[2017-06-07 06:07] LABS: SERUM IRON 16 ug/dL (27-159); TOTAL IRON BINDING CAPACITY 147 ug/dL (250-450); UIBC 131 ug/dL (131-425)
[2017-06-07] MEDS: INSULIN SLIDING SCALE (NOVOLOG) 1 VIAL SQ SCH ×2 (06:50→12:35)
[2017-06-07] MEDS: INSULIN (NOVOLOG) ASPART 100 UNITS/ML 10ML VIAL SQ SCH ×2 (06:51→12:35)
[2017-06-07 09:33] LABS: MCH 25.7 pg (25.7-33.7); MCHC 32.4 g/dl (32.0-36.0); MEAN CELL VOLUME 79.4 fl (80-96); MEAN PLT VOLUME 8.4 fl (7.5-11.1); PLATELET COUNT 214 K/MM3 (134-434); RDW 15.4 % (11.6-15.6); WHITE BLOOD COUNT 7.9 K/mm3 (4.0-10.0)
[2017-06-07] MEDS: HEPARIN NA (PORCINE) 5,000 UNITS/ML 1ML VIAL SQ SCH (09:41)
[2017-06-07 10:09] LABS: ANION GAP 10 (8-16); CALCIUM 8.2 mg/dL (8.5-10.1); CO2 26 mmol/L (21-32); CREATININE 1.2 mg/dL (0.55-1.02); GLUCOSE,RANDOM 176 mg/dL (74-106)
--- NOTE | 2017-06-07 10:23 | PN ---
Progress Note, Physician Chief Complaint: RLE wound and cellulitis History of Present Illness: ID CONSULTATION PROGRESS NOTE Patient seen and examined at bedside. She states that she is feeling better after she received pain medicine this morning. She states that she did have 3 episodes of vomiting last night and is still slightly nauseous. Complains of diffuse, mild abdominal pain that has not improved much since Tuesday. Reports that the pain in her R leg has diminished in severity from what it was previously, but still causes her mild distress. Denies fever, chills, chest pain , SOB, diarrhea, headache. - Current Medication List Current Medications: Active Medications Acetaminophen (Tylenol -) 650 mg PO Q4H PRN PRN Reason: FEVER OR PAIN Last Admin: 06/06/17 01:45 Dose: 650 mg Albuterol Sulfate (Ventolin 0.083% Nebulizer Soln -) 1 amp NEB Q4H PRN PRN Reason: SHORT OF BREATH/WHEEZING Collagenase (Santyl -) 1 applic TP DAILY [facility] Last Admin: 06/06/17 10:19 Dose: Not Given Heparin Sodium (Porcine) (Heparin -) 5,000 unit SQ BID [facility] Last Admin: 06/07/17 09:41 Dose: 5,000 unit Hydromorphone HCl (Dilaudid Injection -) 2 mg IVPB Q4H PRN PRN Reason: PAIN Last Admin: 06/07/17 08:45 Dose: 2 mg Sodium Chloride (Normal Saline -) 1,000 mls @ 100 mls/hr IV ASDIR [facility] Last Admin: 06/06/17 16:43 Dose: Not Given Metronidazole (Flagyl 500mg Premixed Ivpb -) 100 mls @ 100 mls/hr IVPB Q8H-IV DOREEN Last Admin: 06/07/17 09:40 Dose: 100 mls/hr Cefepime HCl 1 gm/ Dextrose 100 mls @ 200 mls/hr IVPB Q8H-IV [facility] Last Admin: 06/07/17 09:41 Dose: 200 mls/hr Insulin Aspart (Novolog Vial Sliding Scale -) 1 vial SQ TIDAC DOREEN PRN Reason: Protocol Last Admin: 06/07/17 06:50 Dose: 4 units Insulin Aspart (Novolog Vial) 6 units SQ TIDAC [facility] PRN Reason: Protocol Last Admin: 06/07/17 06:51 Dose: 6 units Insulin Detemir (Levemir Vial) 20 units SQ HS DOREEN Last Admin: 06/06/17 22:19 Dose: 20 units Ondansetron HCl (Zofran Injection) 4 mg IVPB Q6H PRN PRN Reason: NAUSEA Last Admin: 06/06/17 23:31 Dose: 4 mg Sodium Chloride (Normal Saline -) 1,000 ml IV Q20M PRN PRN Reason: MAP<65mm Hg OR SBP <90 Last Admin: 06/02/17 13:03 Dose: 1,000 ml - Objective Vital Signs: Vital Signs Temperature 99.6 F 06/07/17 09:37 Pulse Rate 80 06/07/17 09:37 Respiratory Rate 18 06/07/17 09:37 Blood Pressure 155/94 06/07/17 09:37 O2 Sat by Pulse Oximetry (%) 93 L 06/06/17 21:00 Constitutional: Yes: No Distress, Calm, Obese Eyes: Yes: Conjunctiva Clear, EOM Intact HENT: Yes: Atraumatic, Normocephalic Neck: Yes: Supple, Trachea Midline Cardiovascular: Yes: Regular Rate and Rhythm, S1, S2. No: JVD, Gallop, Murmur, Rub Respiratory: Yes: Regular, CTA Bilaterally. No: Cough, Rales, Rhonchi, SOB, Stridor Gastrointestinal: Yes: Normal Bowel Sounds, Soft, Abdomen, Obese, Tenderness ( mild diffuse tenderness), Vomiting Musculoskeletal: Yes: WNL Extremities: Yes: Calf Tenderness (R calf tenderness to palpation), Erythema ( Erythema improving) Edema: No Peripheral Pulses WNL: Yes Integumentary: Yes: Pressure Ulcer (on R heel) Wound/Incision: Yes: Dressing Dry and Intact Neurological: Yes: Alert, Oriented ...Motor Strength: WNL Psychiatric: Yes: Alert, Oriented Labs: CBC, BMP 06/07/17 09:10 06/07/17 09:10 INR, PTT INR 1.20 (0.82-1.09) H 06/02/17 12:39 - ....Imaging Cat Scan: Report Reviewed (Significant soft tissue swelling of the R foot; a skin ulcer is seen in the R heel; no gross soft tissue air is seen; no gross bone destruction or periosteal elevation is identified) Ultrasound: Report Reviewed (Mild L renal hydronephrosis w/o stones, hepatosplenomegaly, slightly to moderately dense echotexture of liver suggestive of fatty infiltration vs hepatocellular disease) Problem List - Problems (1) Foot ulcer, right Code(s): L97.519 - NON-PRS CHRONIC ULCER OTH PRT RIGHT FOOT W UNSP SEVERITY Qualifiers: Non-pressure ulcer stage: unspecified non-pressure ulcer stage Qualified Code(s): L97.519 - Non-pressure chronic ulcer of other part of right foot with unspecified severity (2) Sepsis Code(s): A41.9 - SEPSIS, UNSPECIFIED ORGANISM Qualifiers: Sepsis type: sepsis due to unspecified organism Qualified Code(s): A41.9 - Sepsis, unspecified organism (3) Vomiting Code(s): R11.10 - VOMITING, UNSPECIFIED Qualifiers: Vomiting type: unspecified Vomiting Intractability: non-intractable Nausea presence: with nausea Qualified Code(s): R11.2 - Nausea with vomiting, unspecified Assessment/Plan 26 year old female pmh IDDM, HTN, chronic R heel ulcer seen by ID for cellulitis of R leg 2/2 chronic R heel ulcer and vomiting + abdominal pain 1. R leg ulcer + cellulitis + r/o DVT: cellulitis clinically improving; no residual erythema of R leg -LA normalized -continue cefepime -DC flagyl -CT R foot showed no soft tissue air or periosteal elevation. MRI best for osteomyelitis but likely unable due to body habitus. -routine wound care -bone biopsy per podiatry to r/o osteomyelitis 2. Nausea/vomiting/abdominal pain unlikely due to glucose levels (<200) -amylase/lipase levels are low -US abdomen - hepatosplenomegaly, fatty infiltration -continue home meds -DC flagyl
[2017-06-07] MEDS ORDERED: INSULIN (NOVOLOG) ASPART 100 UNITS/ML 10ML VIAL ONE (11:31)
[2017-06-07 12:16] LABS: METAMYELOCYTE 1 % (0-2); PLATELET ESTIMATE ADEQUATE (NORMAL); TOTAL CELLS COUNTED 100
[2017-06-07] MEDS: COLLAGENASE CLOSTRIDIUM HIST. 30 GRAMS TUBE TP SCH (12:30)
[2017-06-07] MEDS: ONDANSETRON 4 MG/2 ML VIAL IVPB PRN (12:32)
[2017-06-07] MEDS ORDERED: METOCLOPRAMIDE HCL INJECTION 10 MG/2 ML VIAL IVPB PRN (13:22)
[2017-06-07] MEDS ORDERED: METOCLOPRAMIDE HCL INJECTION 10 MG/2 ML VIAL IVPB SCH ×2 (13:30→14:00)
[2017-06-07 15:44] VITALS: BP 140/62; PULSE 75; TEMP 98.8
[2017-06-07] MEDS: SODIUM CHLORIDE 1,000 ML IV SCH (16:20)
--- NOTE | 2017-06-07 17:05 | PN ---
Teaching Attending Note Name of Resident: Logan Suh ATTENDING PHYSICIAN STATEMENT I saw and evaluated the patient. I reviewed the resident's note and discussed the case with the resident. I agree with the resident's findings and plan as documented. SUBJECTIVE: feels better but continued nausea still requiring pain meds OBJECTIVE: Vital Signs Period Temp Pulse Resp BP Sys/Wynn Pulse Ox Last 24 Hr 98.5 F-99.6 F 75-89 17-18 124-156/62-94 93-95 cor-rrr lungs clear abd soft,nt ext foot wrapped- just done by primary service CBC, BMP 06/07/17 09:10 06/07/17 09:10 ASSESSMENT AND PLAN: diabetic foot infection, probable osteo will d/c flagyl may be contributing to the nausea continue cefepime Problem List - Problems (1) Sepsis Code(s): A41.9 - SEPSIS, UNSPECIFIED ORGANISM Qualifiers: Qualified Code(s): A41.9 - Sepsis, unspecified organism (2) Soft tissue infection Code(s): L08.9 - LOCAL INFECTION OF THE SKIN AND SUBCUTANEOUS TISSUE, UNSP (3) Osteomyelitis Code(s): M86.9 - OSTEOMYELITIS, UNSPECIFIED (4) Diabetes Code(s): E11.9 - TYPE 2 DIABETES MELLITUS WITHOUT COMPLICATIONS Qualifiers: Qualified Code(s): E13.65 - Other specified diabetes mellitus with hyperglycemia; Z79.4 - [facility] (current) use of insulin (5) Obesities, morbid Code(s): E66.01 - MORBID (SEVERE) OBESITY DUE TO EXCESS CALORIES (6) Foot ulcer, right Code(s): L97.519 - NON-PRS CHRONIC ULCER OTH PRT RIGHT FOOT W UNSP SEVERITY Qualifiers: Qualified Code(s): L97.519 - Non-pressure chronic ulcer of other part of right foot with unspecified severity
--- NOTE | 2017-06-07 17:14 | PN ---
Teaching Attending Note Name of Resident: Emmanuel Frazier ATTENDING PHYSICIAN STATEMENT I saw and evaluated the patient. I reviewed the resident's note and discussed the case with the resident. I agree with the resident's findings and plan as documented. SUBJECTIVE:continues to have intermittent nausea not related to eating. sometimes assoc with lower abdominal pain. states she been having this pain for several days prior to arrival. denies Cp, SOB, fever, chills, OBJECTIVE: Last Vital Signs Temp Pulse Resp BP Pulse Ox 98.8 F 75 17 140/62 95 06/07/17 15:42 06/07/17 15:42 06/07/17 15:42 06/07/17 15:42 06/07/17 10:00 General NAD Abdomen soft NT/ND obese Extremities R heel ulcer with good granulation tissue. no discharge. area not tender, pulse intact ASSESSMENT AND PLAN: 26 year old woman with a history of uncontrolled DM, HTN, diabetic foot ulcer, MRSA who presented to the ER with pain in right foot and erythema of right lower leg associated with fever, chills, nausea, vomiting. 1. Severe sepsis secondary to cellulitis of right leg and possible osteomyelitis of right heel- afebrile overnight. WCx polymicrobial. CRP and ESR elevated. on Cefipime/Flagyl day 3. spoke with agricultural engineering technicians, weight limit is 340lbs. body girth should not be issue as only MRI of the foot. will attempt to obtain MRI. Possible to OR for bone Bx by podiatry. pt is now agreeable. pain control. 2. Nausea and abdominal pain- possible due to abx. will d/w ID about switching regimen. likley to have some gastroparesis component. start reglan TID. encouraged to eat small meals more frequently. monitor 3. Acute kidney injury secondary to sepsis- stable. cont low dose IVF due to vomiting. avoid nephrotoxic agents. 4. DM- uncontrolled. A1c 14.6. reports poor compliance at home. improved here. educated on need for close control of sugars to prevent sequelae of diabetes. nutritional eval for diabetic teaching. 5. Microcytic anemia-slowly trending down. anemia of chronic disease. no signs of active bleeding. no indication for txn at this time 6. Morbid obesity with BMI 57.6 7. DVT ppx- hep sq
--- NOTE | 2017-06-07 17:44 | PN ---
Progress Note (short form) - Note Progress Note: Responded to code 99 immediatly.Patient started the code.Did DL with MAC#3.ETT 7.5 cuff inflated.Posative Etco2.Patient continued to be coded.Advised CXR and ABG.
[2017-06-07] MEDS ORDERED: ENOXAPARIN NA (PORCINE) 120 MG/0.8 ML DISP.SYRIN SQ ONE (18:15)
--- NOTE | 2017-06-07 19:12 | HOSP ---
Subjective - Review of Symptoms Events since last encounter: Code 99 was called. Pads were placed. ACLS protocol was followed. Epi, bicarb, magnesium were given. Patient remained in asystole throughout the code. Lovenox was given. Bedside echo was used to assess cardiac movement. Code was conducted for approximately 1 hour and 15 minutes. Code was halted and patient was pronounced at approximately 6:38 PM. Please see code sheet for complete details. Physical Examination Vital Signs: Vital Signs Temperature 98.8 F 06/07/17 15:42 Pulse Rate 75 06/07/17 15:42 Respiratory Rate 17 06/07/17 15:42 Blood Pressure 140/62 06/07/17 15:42 O2 Sat by Pulse Oximetry (%) 95 06/07/17 10:00 Labs: CBC, BMP 06/07/17 09:10 06/07/17 09:10 Visit type - Emergency Visit Emergency Visit: Yes ED Registration Date: 06/02/17 Care time: The patient presented to the Emergency Department on the above date and was hospitalized for further evaluation of their emergent condition. - New Patient This patient is new to me today: No - Critical Care Critical Care patient: No
--- NOTE | 2017-06-07 19:18 | PN ---
Physical Exam: SUBJECTIVE: Patient seen and examined at bedside. Patient continues to complain of nausea/ vomiting with two episodes of NBNB vomiting OBJECTIVE: Vital Signs Period Temp Pulse Resp BP Sys/Wynn Pulse Ox Last 24 Hr 98.5 F-99.6 F 75-89 17-18 124-156/62-94 93-95 GENERAL: The patient is awake, alert, and fully oriented, in no acute distress. HEAD: Normal with no signs of trauma. EYES: PERRL, extraocular movements intact, sclera anicteric, conjunctiva clear. No ptosis. ENT: Ears normal, nares patent, oropharynx clear without exudates, moist mucous membranes. NECK: Trachea midline, full range of motion, supple. LUNGS: Breath sounds equal, clear to auscultation bilaterally, no wheezes, no crackles, no accessory muscle use. HEART: Regular rate and rhythm, S1, S2 without murmur, rub or gallop. ABDOMEN: Soft, nontender, nondistended, normoactive bowel sounds, no guarding, no rebound, no hepatosplenomegaly, no masses. EXTREMITIES: 2+ pulses, warm, well-perfused, no edema. NEUROLOGICAL: Cranial nerves II through XII grossly intact. Normal speech, gait not observed. PSYCH: Normal mood, normal affect. SKIN: Warm, dry, normal turgor, no rashes or lesions noted Laboratory Results - last 24 hr 06/06/17 06/06/17 06/07/17 06:20 22:23 06:49 WBC RBC Hgb Hct MCV MCH MCHC RDW Plt Count MPV Total Counted Neutrophils % Neutrophils % (Manual) Lymphocytes % Lymphocytes % (Manual) Monocytes % (Manual) Platelet Estimate Sodium Potassium Chloride Carbon Dioxide Anion Gap BUN Creatinine POC Glucometer 218 207 Random Glucose Calcium Iron 16 L TIBC 147 L Iron Saturation 11 L 06/07/17 06/07/17 06/07/17 09:10 09:10 12:31 WBC 7.9 RBC 3.34 L Hgb 8.6 L Hct 26.5 L MCV 79.4 L MCH 25.7 MCHC 32.4 RDW 15.4 Plt Count 214 MPV 8.4 Total Counted 100 Neutrophils % Y Neutrophils % (Manual) 76 Lymphocytes % Y Lymphocytes % (Manual) 19 Monocytes % (Manual) 4 Platelet Estimate Adequate Sodium 148 H Potassium 3.4 L Chloride 112 H Carbon Dioxide 26 Anion Gap 10 BUN 5 L D Creatinine 1.2 H POC Glucometer 181 Random Glucose 176 H Calcium 8.2 L Iron TIBC Iron Saturation 06/07/17 17:30 WBC RBC Hgb Hct MCV MCH MCHC RDW Plt Count MPV Total Counted Neutrophils % Neutrophils % (Manual) Lymphocytes % Lymphocytes % (Manual) Monocytes % (Manual) Platelet Estimate Sodium Potassium Chloride Carbon Dioxide Anion Gap BUN Creatinine POC Glucometer 217 Random Glucose Calcium Iron TIBC Iron Saturation Active Medications Generic Name Dose Route Start Last Admin Trade Name Freq PRN Reason Stop Dose Admin Acetaminophen 650 mg 06/02/17 16:15 06/06/17 01:45 Tylenol - PO 650 mg Q4H PRN Administration FEVER OR PAIN Albuterol Sulfate 1 amp 06/02/17 16:15 Ventolin 0.083% Nebulizer Soln - NEB Q4H PRN SHORT OF BREATH/WHEEZING Collagenase 1 applic 06/03/17 10:00 06/07/17 12:30 Santyl - TP 1 applic DAILY DOREEN Administration Heparin Sodium (Porcine) 5,000 unit 06/02/17 22:00 06/07/17 09:41 Heparin - SQ 5,000 unit BID DOREEN Administration Hydromorphone HCl 2 mg 06/04/17 09:26 06/07/17 12:36 Dilaudid Injection - IVPB 2 mg Q4H PRN Administration PAIN Cefepime HCl 1 gm/ Dextrose 100 mls @ 200 mls/hr 06/05/17 12:15 06/07/17 09:41 IVPB 200 mls/hr Q8H-IV DOREEN Administration Insulin Aspart 1 vial 06/05/17 12:15 06/07/17 12:35 Novolog Vial Sliding Scale - SQ 2 units TIDAC DOREEN Administration Protocol Insulin Aspart 6 units 06/05/17 12:15 06/07/17 12:35 Novolog Vial SQ 6 units TIDAC DOREEN Administration Protocol Insulin Detemir 20 units 06/05/17 10:35 06/06/17 22:19 Levemir Vial SQ 20 units HS DOREEN Administration Metoclopramide HCl 10 mg 06/07/17 14:00 06/07/17 15:29 Reglan Injection - IVPB 10 mg TID DOREEN Administration Ondansetron HCl 4 mg 06/02/17 16:15 06/07/17 12:32 Zofran Injection IVPB 4 mg Q6H PRN Administration NAUSEA ASSESSMENT/PLAN: 26 yo f w/ PMH DM, Asthma, HTN, Chronic foot ulcer presents to the ED c/o fevers , chills as well as redness, pain and swelling of the right foot for one day. Patient admitted for sepsis 2/2 infected diabetic foot ulcer. #sepsis 2/2 right lower leg cellulitis 2/2 diabetic foot ulcer -wound culture growing MSSA, strep pyogenes, proteus, corynebacteria -Bcx and Ucx no growth to date -cefepime and flagyl IV, day 3 -s/p wound debridement 06/03 -Tylenol PRN fever -CT shows no gas in tissue or overt bone destruction -MRI unable to be performed /2 patient's body habitus -DUPLEX U/S lower extremity negative for DVT -Podiatry to conduct bone biopsy #nausea/ vomiting possibly secondary to diabetic gastroparesis -u/s abdomen shows hepatosplenomegaly, nonalcoholic fatty liver dz, renal hydronephrosis w/o obstruction -zofran for nausea -Reglan TID #uncontrolled DM -A1c 14.6% -ISS -levemir 20u SQ HS -novolog 6u TIDAC -Diabetic diet #Asthma -PRN Nebs #HTN- BP controlled at this time -will resume patient's home enalapril 10mg daily if needed. FEN -NS@100 -will monitor -Diabetic diet Prophylaxsis -Hep SQ 5Ku BID Dispo: -patient admitted for sugar control and treatment with IV antibiotics Problem List - Problems (1) Diabetes Code(s): E11.9 - TYPE 2 DIABETES MELLITUS WITHOUT COMPLICATIONS Qualifiers: Diabetes mellitus type: other specified (including BIJAN) Diabetes mellitus complication status: with hyperglycemia Diabetes mellitus manager long term care insulin use: with [facility] use Qualified Code(s): E13.65 - Other specified diabetes mellitus with hyperglycemia; Z79.4 - senior living (current) use of insulin (2) Foot ulcer, right Code(s): L97.519 - NON-PRS CHRONIC ULCER OTH PRT RIGHT FOOT W UNSP SEVERITY Qualifiers: Non-pressure ulcer stage: unspecified non-pressure ulcer stage Qualified Code(s): L97.519 - Non-pressure chronic ulcer of other part of right foot with unspecified severity (3) Sepsis Code(s): A41.9 - SEPSIS, UNSPECIFIED ORGANISM Qualifiers: Sepsis type: sepsis due to unspecified organism Qualified Code(s): A41.9 - Sepsis, unspecified organism (4) Vomiting Code(s): R11.10 - VOMITING, UNSPECIFIED Qualifiers: Vomiting type: unspecified Vomiting Intractability: non-intractable Nausea presence: with nausea Qualified Code(s): R11.2 - Nausea with vomiting, unspecified
--- NOTE | 2017-06-07 20:42 | DS ---
Physical Exam: HOSPITAL COURSE: Date of Admission:06/02/17 The patient is a 26 yo f with PMH uncontrolled DM, Asthma, HTN, Morbid obesity, Chronic diabetic foot ulcer presented to the ED complaining of fevers, chills as well as pain and swelling of the right foot for one day. The symptoms were associated with nausea and vomiting. The erythema and swelling of the leg was concentrated around the foot and heel but extended up to the mid calf. She denied shortness of breath or chest pain. In the ED, she was found to have a white blood cell count of 18, a lactic acid of 3.5 and a temperature of 103.5. She was treated with vancomycin and zosyn. The patient was admitted for sepsis secondary to cellulitis and infected diabetic foot ulcer. During her admission, her HbA1c was found to be 14.6 and her sugars were consistently elevated despite treatment with levemir, novolog and an insulin sliding scale. Dr. Glover from infectious disease was consulted. Dr. Roberts from podiatry was consulted. A doppler ultrasound of the right lower extremity was negative for DVT. A CT of the lower legs showed soft tissue swelling. An MRI was delayed as the patient was apprehensive about undergoing the test. Dr. Roberts offered to conduct a bone biopsy, but the patient deferred the procedure. A culture of the wound grew MSSA, Strep pyogenes, Proteus vulgaris and corynebacteria. The patient's antibiotics were changed to cefipime and flagyl. The patient was treated with zofran and reglan for her nausea. Patient showed clinical improvement on antibiotic treatment. The erythema and swelling of the right foot was resolving. At approximately 17:30, patient was found to be unresponsive by the nurse. Code 99 was called. Pads were placed. Attending was at bedside. ACLS protocol was initiated and followed. Patient's family was notified. Patient remained in asystole throughout the code. High dose Lovenox was given. Bedside echo was used to assess cardiac movement. Code was conducted for approximately 1 hour and 15 minutes. Patient was pronounced at approximately 18:[address] Ruiz. Please see code sheet for complete details. Family was notified. [facility] office was also notified and they declined the case. Patient requested a private autopsy. Date of Discharge: 06/07/17 Minutes to complete discharge: 40 Discharge Summary Reason For Visit: DM, SEPSIS, ULCER OF RIGHT FOOT, VOMITING Current Active Problems Diabetes (Acute) Foot ulcer, right (Acute) Obesities, morbid (Acute) Osteomyelitis (Acute) Sepsis (Acute) Soft tissue infection (Acute) Vomiting (Acute) Condition: - Instructions Referrals: Radha Isaac MD [Primary Care Provider] - Disposition: - Home Medications Comprehensive Discharge Medication List: Ambulatory Orders Insulin Glargine,Hum.rec.anlog [Lantus Solostar PEN (NF)] 60 units SQ BID Insulin Lispro [Humalog] 100 unit SQ ASDIR 06/02/17 Problem List - Problems (1) Diabetes Code(s): E11.9 - TYPE 2 DIABETES MELLITUS WITHOUT COMPLICATIONS Qualifiers: Diabetes mellitus type: other specified (including BIJAN) Diabetes mellitus complication status: with hyperglycemia Diabetes mellitus extermination supervisor insulin use: with extermination supervisor use Qualified Code(s): E13.65 - Other specified diabetes mellitus with hyperglycemia; Z79.4 - snf (current) use of insulin (2) Foot ulcer, right Code(s): L97.519 - NON-PRS CHRONIC ULCER OTH PRT RIGHT FOOT W UNSP SEVERITY Qualifiers: Non-pressure ulcer stage: unspecified non-pressure ulcer stage Qualified Code(s): L97.519 - Non-pressure chronic ulcer of other part of right foot with unspecified severity (3) Sepsis Code(s): A41.9 - SEPSIS, UNSPECIFIED ORGANISM Qualifiers: Sepsis type: sepsis due to unspecified organism Qualified Code(s): A41.9 - Sepsis, unspecified organism (4) Vomiting Code(s): R11.10 - VOMITING, UNSPECIFIED Qualifiers: Vomiting type: unspecified Vomiting Intractability: non-intractable Nausea presence: with nausea Qualified Code(s): R11.2 - Nausea with vomiting, unspecified This patient is new to me today: No Emergency Visit: Yes ED Registration Date: 06/02/17 Care time: The patient presented to the Emergency Department on the above date and was hospitalized for further evaluation of their emergent condition. Critical Care patient: No - Discharge Referral Referred to [facility] No
== END 2017-06-07 18:40 | disposition expired | DRG 720 ==
LOC: JER 11:44 → JERBED 14:56 → J5S 18:07
PROVIDERS: ADMIT Internal Medicine; ATTEND Internal Medicine
PROC: 0HBMXZZ Excision of Right Foot Skin, External Approach (ICD-10-PCS; principal; 2017-06-03)
DX: A41.02 Sepsis due to Methicillin resistant Staphylococcus aureus (principal); R65.20 Severe sepsis without septic shock; E11.621 Type 2 diabetes mellitus with foot ulcer; L97.419 Non-pressure chronic ulcer of right heel and midfoot with unspecified severity; M86.9 Osteomyelitis, unspecified; E11.65 Type 2 diabetes mellitus with hyperglycemia; I10 Essential (primary) hypertension; E66.01 Morbid (severe) obesity due to excess calories; Z68.43 Body mass index [BMI] 50.0-59.9, adult; R11.2 Nausea with vomiting, unspecified; J45.909 Unspecified asthma, uncomplicated; E87.2 Acidosis; L03.115 Cellulitis of right lower limb; N17.9 Acute kidney failure, unspecified; D64.9 Anemia, unspecified; Z79.4 Long term (current) use of insulin; L08.9 Local infection of the skin and subcutaneous tissue, unspecified
CPT/HCPCS: 36415; 71020-TC; 73590-TC-RT; 73610-TC-RT; 73630-TC-RT; 73700-TC-RT; 76700-TC; 80048; 80053; 80307; 81003; 81015; 82009; 82040; 82150; 82728; 82803; 82947; 83036; 83540; 83550; 83605; 83690; 83735; 84100; 84443; 84484; 84703; 85025; 85027; 85610; 85651; 85730; 86140; 86850; 86900; 86901; 87040; 87070; 87077; 87086; 87186; 87205; 93005; 93010; 93971-TC; 99284-25; J1644